=== PATIENT | male | born 1955 | race Caucasian/White ===

== ENCOUNTER 2022-03-20 14:48 | Inpatient (IN) | payer MEDICARE, SELFPAY ==
[2022-03-20] VITALS (42 sets, daily range): BP systolic 114–146; BP diastolic 64–92; PULSE 51–92; RESP 12–28; TEMP 36.4–36.7; O2SAT 89–100; BMI 24.4
--- NOTE | ~2022-03-20 | US_ITS ---
EXAMINATION: US renal BI DATE: 03/22/2022 14:47 INDICATION: Decreased urine output. TECHNIQUE: Multiple ultrasound grayscale images of the kidneys were obtained. COMPARISON: CT abdomen and pelvis 12/08/2012 FINDINGS: The right kidney measures 12.2 x 5.4 x 6.2 cm. The left kidney measures 12.9 x 5.7 x 5.7 cm. The kidn eys demonstrate normal parenchymal echogenicity. There is a 1.3 cm cyst in left kidney. There is no h ydronephrosis. The bladder is decompressed by a Villafaan catheter. IMPRESSION: 1. Normal kidney sizes. No hydronephrosis. Reviewed, dictated and finalized at location A.
--- NOTE | ~2022-03-20 | XR_ITS ---
EXAMINATION: XR chest 1V portable DATE: 03/23/2022 05:47 INDICATION: Cough. TECHNIQUE: A single frontal view of the chest was obtained. COMPARISON: Chest 2 views 05/31/19 FINDINGS: The patient is rotated to his left. There are airspace opacities in right mid and lower soni g zones. There are lucencies in the lungs, consistent with emphysema. There is a small right pleural effusion. No pneumothorax. The heart size is normal. There is a large hiatal hernia. IMPRESSION: 1. Worsened airspace opacities in right mid and lower lung zones, consistent with atelectasis versus pneumonia. 2. Small right pleural effusion. 3. Emphysema. 4. Large hiatal hernia. Reviewed, dictated and finalized at location A. IMPRESSION: 1. Worsened airspace opacities in right mid and lower lung zones, consistent wi th atelectasis versus pneumonia. 2. Small right pleural effusion. 3. Emphysema. 4. Large hiatal hernia.
--- NOTE | ~2022-03-20 | CT_ITS ---
EXAMINATION: CT brain wo con DATE: 03/20/2022 15:36 INDICATION: fall, AMS . TECHNIQUE: Computed tomography (CT) of the head was performed without intravenous contrast. The mA wa s adjusted according to patient size. Iterative reconstruction technique was employed. The dose-lengt h product was 681.00 mGy-cm. COMPARISON: None FINDINGS: No acute intracranial hemorrhage or extra-axial fluid collection. No hydrocephalus, mass, or herniation. No acute ischemic infarct. Unremarkable dural venous sinus attenuation. No acute osseous abnormality. Left maxillary retention cyst or polyp, otherwise the aerated spaces are clear. Mild atrophy and chronic white matter change. Atherosclerotic intracranial calcification. IMPRESSION: No acute intracranial process. Reviewed, dictated and finalized at location K.
--- NOTE | 2022-03-20 14:51 | ECG_ITS ---
Measurements Intervals O'Brien Rate: 81 P: 19 GA: 241 QRS: 34 QRSD: 85 T: 64 QT: 352 QTc: 409 Interpretive Statements SINUS RHYTHM WITH FIRST DEGREE AV BLOCK RIGHT ATRIAL ENLARGEMENT [0.3mV P-WAVE] LEFT ATRIAL ENLARGEMENT [-0.15mV P-WAVE IN V1/V2] COMPARED TO ECG 08/15/2019 05:27:52 FIRST DEGREE AV BLOCK NOW PRESENT Electronically Signed On 03-20-2022 19:48:38 CDT by Ketty Brooks M.D.
--- NOTE | 2022-03-20 14:59 | ED.GENADULT ---
HPI - General Adult General Chief complaint: Overdose Stated complaint: OD Time Seen by Provider: 03/20/22 14:49 History of Present Illness HPI narrative: 66-year-old male presented to the emergency department for evaluation of an intentional overdose. Patient does have a psychiatric history and does have prior suicide attempts. Patient states his last suicide attempt was approximately 10 years ago. Patient states his last psychiatric inpatient treatment was also 10 years ago. Patient states that he is unsure of the last time he had psychiatric follow-up. Patient states he does not have a counselor. Patient states last night at approximately 1 AM he took an unknown amount of Ativan. Patient does have a prescription of 2 mg tablets for Ativan. Patient's found the patient on the floor this afternoon and called EMS. Related Data Home Medications Medication Instructions Recorded Confirmed fenofibrate 160 mg tablet 160 mg PO DAILY 08/07/19 03/20/22 lorazepam 2 mg tablet 2 mg PO QID 08/07/19 03/20/22 lovastatin 40 mg tablet 40 mg PO DAILY 08/07/19 03/20/22 apixaban 5 mg tablet (Eliquis) 5 mg PO BID 03/20/22 03/20/22 clonazepam 1 mg tablet 1 mg PO BID 03/20/22 03/20/22 olanzapine 10 mg tablet 10 mg PO DAILY 03/20/22 03/20/22 Allergies Allergy/AdvReac Type Severity Reaction Status Date / Time erythromycin base Allergy Intermediate HIVES Verified 08/15/19 04:29 trazodone Allergy Intermediate HIVES Verified 08/15/19 04:29 PAROXETINE HCL Allergy Intermediate HIVES Uncoded 08/07/19 14:20 SERTRALINE HCL Allergy Intermediate HIVES Uncoded 08/07/19 14:20 Review of Systems Review of Systems: PSYCHIATRIC: History of depression and SI ROS unobtainable: Yes unobtainable due to mental status PMFSH Past Medical History Medical History (Updated 03/20/22 @ 20:03 by Odilia Carr NP) Anxiety Colon polyps Depression GERD (gastroesophageal reflux disease) History of revision of total replacement of right hip joint Hx of deep venous thrombosis Hyperlipidemia AMADA (obstructive sleep apnea) Surgical History Surgical History (Updated 03/20/22 @ 19:56 by Odilia Carr NP) H/O rectal polypectomy Status post total hip replacement, right Family History Family History Father Family history of malignant neoplasm of esophagus Patient's father is Mother Patient's mother is in good health Sibling Patient's brother is in good health Daughter Sleep apnea Other Cerebrovascular accident Family history of cardiovascular disease Family history of mental disorder Social History Social History (Updated 03/20/22 @ 19:59 by Odilia Carr NP) Social History: Patient is and lives with his . He smokes a pack a cigarettes a day. He is retired from a [employer]. He also previously heavily drink alcohol. He does designate his as his POA. Code status full code Smoking packs per day: 3 Smoking cigarettes per day: 60.0 Smoking status: Former smoker Second hand tobacco smoke exposure: No Smoking end date: 08/01/12 Alcohol intake: former Drinks per week: 6 Alcohol use details: Previously drank 2-3 beers per day but quit 13-14 years ago. Substance use: never Gender identity (if verbalized by the patient): Male Spiritual care concerns: No Agree to blood products: No Exam Narrative: APPEARANCE: Alert but somnolent HEAD: normocephalic, atraumatic. EYES: PERRLA/EOMI, conjunctivae clear. NOSE: Normal no drainage EARS:TMS clear with good light reflex. NECK: Supple. No adenopathy, no masses. RESPIRATORY: Airway patent, respirations nonlabored. Clear to auscultation bilaterally, no rales, rhonchi, wheezing. CARDIOVASCULAR: Regular rate and rhythm without murmurs rubs or gallops. ABDOMINAL: Soft, nontender, nondistended, normal bowel sounds MUSCULOSKELETAL: Moves all extremities. Strength/ROM intact, No edema, No c
[2022-03-20 15:15] LABS: Hematocrit 50.6 % (42.0-52.0); Hemoglobin 16.7 g/dL (14.0-18.0); Mean Corpuscular Hemoglobin 31.2 pg (26-34); Mean Corpuscular Volume 94.6 fl (80-100); Mean Platelet Volume 10.9 fl (7.4-10.4); Platelet Count Result 254 k/mm3 (150-375); Red Blood Count 5.35 M/mm3 (4.6-6.20); Red Cell Distribution Width 14.6 % (11.5-14.5); White Blood Count 14.3 K/mm3 (4.5-10.0)
[2022-03-20] MEDS: SODIUM CHLORIDE 0.9% IV 1,000 ML 999 ML IV CONT ×3 (15:25→16:19)
--- NOTE | 2022-03-20 15:25 | PC.NURSE ---
@ [phone] spoke with Zhanna from Poison Control [phone]. States to watch for symptoms. And support. Do not give Flumazenil. Peak hrs 2 hours & half life 12 hours
[2022-03-20 15:29] LABS: Alanine Aminotransferase 14 U/L (6-50); Alkaline Phosphatase 84 U/L (38-126); Anion Gap 12 mmol/L (8-16); Aspartate Amino Transferase 32 U/L (17-59); Bilirubin,Total 0.8 mg/dL (0.2-1.3); Blood Urea Nitrogen 11 mg/dL (9-20); Calcium 9.5 mg/dL (8.4-10.2); Carbon Dioxide 20 mmol/L (22-30); Chloride 109 mmol/L (98-107); Estimated CRCL calculation 74 ml/min; Estimated Glomerular Filt Rate > 60; Glucose 97 mg/dL (65-110); Potassium 4.1 mmol/L (3.4-5.0); Sodium 141 mmol/L (137-145)
[2022-03-20 15:30] LABS: Acetaminophen < 10 ug/mL (10-30); Ethanol < 10 mg/dL (<10); Salicylate < 1.0 mg/dL (2-20)
[2022-03-20 15:32] LABS: Creatine Kinase 864 U/L (55-170)
[2022-03-20 15:55] LABS: Lymphocytes Absolute Manual 0.57 K/mm3 (1.1-4.5); Monocytes Percent Manual 7 % (3-9); Neutrophils Percent Manual 89 % (46-73); Platelet Estimate Adequate (Adequate); Total Cells Counted 100
[2022-03-20 16:00] LABS: Thyroid Stimulating Hormone 0.177 uIU/mL (0.465-4.680)
[2022-03-20 16:02] LABS: SARS-CoV-2 RNA PCR Negative
--- NOTE | 2022-03-20 16:05 | PM.IMHP ---
H&P: HPI History of Present Illness Date/Time: 03/20/22 16:05 Chief Complaint: Overdose Narrative: This is a 66-year-old male patient who resides with his . The patient does have a psychiatric history and has had prior suicide attempts. The patient admits to feeling depressed. He stated that something happened make him feel this way but would not go into details. His last suicide attempt was approximately 10 years ago. The patient had inpatient psychiatric treatment at that time. He does not have a counselor. The patient is prescribed 2 mg of Ativan. The patient's found him on the floor this afternoon and called EMS. The patient did not know how many Ativan he took today. The patient is somewhat somnolent but is able to answer my questions. His white count is noted to be 14.3. His total creatinine kinase is 864. The patient had been found lying on the floor. The patient is negative for COVID. His Ua was negative for UTI. The patient is being admitted to observation status on the date of service of 03/20/2022. Review of Systems Review of Systems: See HPI All systems reviewed & are unremarkable except as noted in HPI and below Constitutional: Constitutional: Reports as per HPI and Reports no additional constitutional complaints Eyes: Eyes: Reports as per HPI and Reports no additional eye complaints ENT: Reports system reviewed and no additional complaints, except as documented and Reports Normal hearing present Cardiovascular: Cardiovascular: Reports no additional cardiovascular complaints Respiratory: Respiratory: Reports no additional respiratory complaints and Reports no additional respiratory complaints Gastrointestinal: Gastrointestinal: Reports as per HPI and Reports no additional gastrointestinal complaints Musculoskeletal: Musculoskeletal: Reports no additional musculoskeletal complaints Integumentary/Breasts: Skin/Breast: Reports system reviewed and no additional complaints, except as docu and Reports as per HPI Neurologic: Reports system reviewed and no additional complaints, except as documented, Reports as per HPI and Reports Normal hearing present Psychiatric: Psychiatric: Reports no additional psychiatric complaints and Reports as per HPI Endocrine: Endocrine: Reports no additional endocrine complaints Hematologic/Lymphatic: Hematologic/Lymphatic: Reports no additional hematologic/lymphatic complaints Allergic/Immunologic: Allergic/Immunologic: Reports no additional allergic/immunologic complaints [facility] Past Medical History Medical History (Updated 03/20/22 @ 20:03 by Odilia Carr NP) Anxiety Colon polyps Depression GERD (gastroesophageal reflux disease) History of revision of total replacement of right hip joint Hx of deep venous thrombosis Hyperlipidemia AMADA (obstructive sleep apnea) Surgical History Surgical History (Updated 03/20/22 @ 19:56 by Odilia Carr NP) H/O rectal polypectomy Status post total hip replacement, right Family History Family History Father Family history of malignant neoplasm of esophagus Patient's father is Mother Patient's mother is in good health Sibling Patient's brother is in good health Daughter Sleep apnea Other Cerebrovascular accident Family history of cardiovascular disease Family history of mental disorder Social History Social History (Updated 03/20/22 @ 19:59 by Odilia Carr NP) Social History: Patient is and lives with his . He smokes a pack a cigarettes a day. He is retired from a [employer] company. He also previously heavily drink alcohol. He does designate his as his POA. Code status full code Smoking packs per day: 3 Smoking cigarettes per day: 60.0 Smoking status: Former smoker Second hand tobacco smoke exposure: No Smoking end date: 08/01/12 Alcohol intake: former Alcohol use details: Previously drank
[2022-03-20 16:12] LABS: Appearance Urine Clear (Clear); Bilirubin Urine Negative (Negative); Blood Urine Negative (Negative); Color Urine Yellow (Yellow); Glucose Urine UA Negative (Negative); Ketones Urine Negative (Negative); Leukocyte Esterase Ur Negative LEU/UL (Negative); Nitrate Urine Negative (Negative); Protein Urine Negative (Negative)
[2022-03-20 16:13] LABS: Add Urine Microscopic? NO
--- NOTE | 2022-03-20 17:10 | PC.NURSE ---
Spoke to poison control. Updated them on patients condition.
--- NOTE | 2022-03-20 19:37 | PC.NURSE ---
This patient, Maximiliano Platt, was admitted to Intensive Care Unit-5 at 1925. Patient/family oriented to hospital policies and general routines including ID bracelet, bed and alarms, visiting hours, pain management, procedures, bathroom and other care routines, personal items, smoking policy, room service/diet, and visiting hours. Information on how to activate the Rapid Response Team has been discussed. Patient/Family are encouraged to report perceived risks to care and to ask questions if they do not understand what they are told or what they should do.
[2022-03-20] MEDS: SODIUM CHLORIDE 0.9% IV 1,000 ML 125 ML IV CONT (20:57)
[2022-03-20] MEDS: FAMOTIDINE 20 MG/2 ML VIAL IV PUSH (21:01)
--- NOTE | 2022-03-20 22:46 | PC.NURSE ---
03/20/22 at 2........spoke with poison control and updated them on patient's condition.
[2022-03-20] MEDS: APIXABAN 5 MG TABLET PO (23:44)
[2022-03-21] VITALS (15 sets, daily range): BP systolic 112–138; BP diastolic 62–95; PULSE 42–80; RESP 14–25; TEMP 36.4–36.8; O2SAT 94–97
[2022-03-21 04:20] LABS: Basophils Absolute Auto 0.1 K/mm3 (0.0-0.1); Basophils Percent Auto 0.9 % (0.2-1.2); Eosinophils Absolute Auto 0.2 K/mm3 (0-0.3); Eosinophils Percent Auto 3.2 % (0-4.4); Hematocrit 43.1 % (42.0-52.0); Hemoglobin 13.8 g/dL (14.0-18.0); Immature Granulocyte Absolute 0.02 K/mm3 (0.00-0.031); Immature Granulocyte Percent A 0.3 % (0-0.5); Lymphocytes Absolute Auto 0.65 K/mm3 (0.9-3.2); Lymphocytes Percent Auto 10.3 % (18.3-44.2); Mean Corpuscular Hemoglobin 31.2 pg (26-34); Mean Corpuscular Volume 97.5 fl (80-100); Mean Platelet Volume 10.5 fl (7.4-10.4); Monocytes Absolute Auto 0.5 K/mm3 (0.1-0.6); Monocytes Percent Auto 8.5 % (2.6-8.5); Neutrophils Absolute Auto 4.9 K/mm3 (1.3-6.7); Neutrophils Percent Auto 76.8 % (45.5-73.1); Platelet Count Result 181 k/mm3 (150-375); Red Blood Count 4.42 M/mm3 (4.6-6.20); Red Cell Distribution Width 14.7 % (11.5-14.5); White Blood Count 6.3 K/mm3 (4.5-10.0)
[2022-03-21 04:42] LABS: Lactic Acid Reflex 0.8 mmol/L (0.7-2.0)
[2022-03-21] MEDS: SODIUM CHLORIDE 0.9% IV 1,000 ML 125 ML IV CONT ×3 (04:46→22:05)
[2022-03-21 05:00] LABS: Alanine Aminotransferase 11 U/L (6-50); Albumin Level 2.7 g/dL (3.5-5.1); Alkaline Phosphatase 64 U/L (38-126); Anion Gap 6 mmol/L (8-16); Aspartate Amino Transferase 37 U/L (17-59); Bilirubin,Total 0.8 mg/dL (0.2-1.3); Blood Urea Nitrogen 10 mg/dL (9-20); CRP 4.2 mg/dL (<1.0); Calcium 8.5 mg/dL (8.4-10.2); Carbon Dioxide 21 mmol/L (22-30); Chloride 112 mmol/L (98-107); Creatine Kinase 1390 U/L (55-170); Estimated CRCL calculation 80 ml/min; Estimated Glomerular Filt Rate > 60; Glucose 84 mg/dL (65-110); Phosphorus 2.8 mg/dL (2.5-4.5); Potassium 3.5 mmol/L (3.4-5.0); Sodium 139 mmol/L (137-145)
[2022-03-21 05:31] LABS: Thyroid Stimulating Hormone Reflex 0.141 uIU/mL (0.465-4.68)
[2022-03-21 06:00] LABS: Free T4 Free Thyroxine Reflex 1.46 ng/dL (0.78-2.19)
[2022-03-21 08:07] LABS: Total Triiodothyronine (T3) 0.78 NG/ML (0.97-1.69)
--- NOTE | 2022-03-21 08:58 | WPDCNINT ---
Assessment and Plan Assessment and plan (1) Benzodiazepine overdose: Code(s): T42.4X1A - Poisoning by benzodiazepines, accidental (unintentional), initial encounter Status: Acute Assessment and Plan: Patient presented with mental status, found down by his , patient stated he ingested unknown amount of Ativan 2 mg pills. -patient adequately fluid resuscitated -continue maintenance IV fluids -monitor urine output -patient is hemodynamically stable, (2) Suicidal behavior: Code(s): R45.89 - Other symptoms and signs involving emotional state Status: Acute Assessment and Plan: Patient with suicidal behavior, -bedside sitter in place -continue suicide precautions -will have care coordination and crisis evaluated the patient as he seems to be medically stable at this time (3) Depression: Qualifiers: Depression Type: major depressive disorder Major depression recurrence: unspecified whether recurrent Active/Remission status: currently active Major depression episode severity: severe Psychotic features: with psychotic features Qualified Code(s): F32.3 - Major depressive disorder, single episode, severe with psychotic features Code(s): F32.9 - Major depressive disorder, single episode, unspecified Status: Acute Assessment and Plan: Held olanzapine as he was bradycardic (4) Anxiety: Code(s): F41.9 - Anxiety disorder, unspecified Status: Acute (5) AMADA (obstructive sleep apnea): Code(s): G47.33 - Obstructive sleep apnea (adult) (pediatric) Status: Acute Assessment and Plan: CPAP at night on home settings (6) Hx of deep venous thrombosis: Code(s): Z86.718 - Personal history of other venous thrombosis and embolism Status: Acute Assessment and Plan: Continue apixaban (7) Rhabdomyolysis: Code(s): M62.82 - Rhabdomyolysis Status: Acute Assessment and Plan: Elevated CK level, patient has received adequate fluids, continue maintenance IV fluids -will give additional IV fluid Plan DVT prophylaxis: Apixaban Nutrition: Regular diet, finger foods Code Status: Full code Critical Care Time Spent: 45 minutes Due to a high probability of clinically significant, life threatening deterioration, the patient required my highest level of preparedness to intervene emergently and I personally spent this critical care time directly and personally managing the patient. This critical care time included obtaining a history; examining the patient; pulse oximetry; ordering and review of studies; arranging urgent treatment with development of a management plan; evaluation of patient's response to treatment; frequent reassessment; and discussions with other providers. It was exclusive of separately billable procedures and treating other patients and teaching time. Please see Assessment and Plan section and the rest of the note for further information on patient assessment and treatment [employer]er Consult Note Consult date: 03/21/22 Reason for consult: Benzodiazepine overdose, altered mental status HPI: Maximiliano Platt is a 66 year old male with past medical history of anxiety, depression, GERD a history of DVT, hyperlipidemia, obstructive sleep apnea presented the ED on 03/20/2022 after ingesting unknown amount of Ativan 2 mg pills. He says he has some stressors in life that he does not tolerate discuss, but he wanted to end his life so took the pills. He has a history of suicide attempt upon 10 years ago, he did have inpatient psychiatric treatment at that time. Patient was given adequate amount of IV fluids in the ER and remains on maintenance IV fluids. WBC count was 14.3 on admission which has normalized this morning, electrolytes and renal function are within normal limits. CK levels are elevated Patient seen and examined this morning, remains in bed, bedside sitter in place, hemodynamically stable, was bradyca
[2022-03-21] MEDS: APIXABAN 5 MG TABLET PO ×2 (09:03→17:18)
[2022-03-21] MEDS: FENOFIBRATE 160 MG TABLET PO (09:04)
[2022-03-21] MEDS: FAMOTIDINE 20 MG/2 ML VIAL IV PUSH ×2 (09:04→20:04)
--- NOTE | 2022-03-21 09:34 | PM.IMPN ---
Progress Note: A&P Assessment and Plan (1) Benzodiazepine overdose: Code(s): T42.4X1A - Poisoning by benzodiazepines, accidental (unintentional), initial encounter Status: Acute Assessment and Plan: Patient found down by his with altered mental status. Discovered that he overdosed on lorazepam 2mg tablets of unknown quantity. Patient is hemodynamically stable. -patient was adequately fluid resuscitated -he remains on maintenance IV fluids -monitor urine output -continue supportive care (2) Suicidal behavior: Code(s): R45.89 - Other symptoms and signs involving emotional state Status: Acute Assessment and Plan: Patient with depression on olanzapine, clonazepam and lorazepam. He admits to overdosing on lorazepam in an attempted suicide. Unclear how long he has had suicidal ideation or what (if any) was the trigger. -bedside sitter in place -continue suicide precautions -care coordination and crisis evaluation (3) Rhabdomyolysis: Code(s): M62.82 - Rhabdomyolysis Status: Acute Assessment and Plan: Elevated CK level present on admission. [place] related to patient being down on the ground. He is also on lovastatin. TCK was 864 but has climbed to 1390. -patient received adequate fluids for resuscitation -remains on maintenance IV fluids with additional fluids being given with Hetastarch. -continue to hold statin -follow levels (4) Depression: Qualifiers: Active/Remission status: currently active Depression Type: major depressive disorder Major depression episode severity: severe Major depression recurrence: unspecified whether recurrent Psychotic features: with psychotic features Qualified Code(s): F32.3 - Major depressive disorder, single episode, severe with psychotic features Code(s): F32.9 - Major depressive disorder, single episode, unspecified Status: Acute Assessment and Plan: Patient with known depression. -Held olanzapine as he was bradycardic (james could be related to AMADA) -As above -Continue supportive care (5) Anxiety: Code(s): F41.9 - Anxiety disorder, unspecified Status: Acute Assessment and Plan: Stable. As above. (6) AMADA (obstructive sleep apnea): Code(s): G47.33 - Obstructive sleep apnea (adult) (pediatric) Status: Acute Assessment and Plan: Stable. Continue CPAP at night on home settings (7) Hx of deep venous thrombosis: Code(s): Z86.718 - Personal history of other venous thrombosis and embolism Status: Acute Assessment and Plan: Known hx of DVT on intermodal customer service anticoagulation. Continue apixaban Plan DVT prophylaxis: Apixaban Nutrition: Regular diet, finger foods Code Status: Full code Subjective Date/time seen: 03/21/22 09:34 Interval history: 66yo male with depression and a hx of suicide attempts her for Ativan OD in a suicide attempt. Patient states he is here due to 'suicide'. He admits to attempted suicide but rivas not provide further details on why he tried to hurt himself. He feels very weak. Denies n/v. Eating okay. No CP. No back pain. He does feel less groggy today. Exam Narrative: AF 98.2 132/62 82 25 94% ra Gen - NARD Chest - CTA bilaterally anteriorly and in the flanks. Nml RR CV - RRR S1-S2. Tele showing occasional bradycardia. Abd - Soft, nontender, nondistended, +bowel sounds Ext - No edema Neuro -?Patient is groggy but awake and oriented x4. no focal weakness. Skin -? Some skin discoloration on lower extremities (dirt?). Right knee dry abrasion without erhythema. Faint erythema to the right elbow with dried eschars but no pain and very little warmth. Speech is clear but slow Psych -?Groggy. Depressed affect. slow speech and mentation Objective Data Vital Signs Vital Signs: Vital Signs - 24 hr 03/20/22 14:50 03/20/22 15:27 03/20/22 15:15 Temperature 97.6 F Pulse Rate 92 87 Res
[2022-03-21 10:58] LABS: Amphetamine Screen Urine Negative (Negative); Barbiturate Screen Urine Negative (Negative); Benzodiazepines Screen Urine Positive (Negative); Cannabinoid Screen Urine Negative (Negative); Cocaine Screen Urine Negative (Negative); Methadone Screen Urine Negative (Negative); Opiate Screen Urine Negative (Negative); Phencyclidine Screen Urine Negative (Negative)
[2022-03-21] MEDS: hetaSTARCH 6%/NACL 500 ML 250 ML IV CONT (11:00)
[2022-03-22] VITALS (10 sets, daily range): BP systolic 122–136; BP diastolic 77–86; PULSE 42–56; RESP 15–21; TEMP 36.9–37.2; O2SAT 92–93
[2022-03-22 04:19] LABS: Basophils Absolute Auto 0.1 K/mm3 (0.0-0.1); Basophils Percent Auto 0.8 % (0.2-1.2); Eosinophils Absolute Auto 0.2 K/mm3 (0-0.3); Eosinophils Percent Auto 2.7 % (0-4.4); Hematocrit 41.8 % (42.0-52.0); Hemoglobin 13.1 g/dL (14.0-18.0); Immature Granulocyte Absolute 0.03 K/mm3 (0.00-0.031); Immature Granulocyte Percent A 0.4 % (0-0.5); Lymphocytes Absolute Auto 0.91 K/mm3 (0.9-3.2); Lymphocytes Percent Auto 12.2 % (18.3-44.2); Mean Corpuscular HGB Conc 31.3 g/dl (32-36); Mean Corpuscular Hemoglobin 31.2 pg (26-34); Mean Corpuscular Volume 99.5 fl (80-100); Mean Platelet Volume 11.1 fl (7.4-10.4); Monocytes Absolute Auto 0.7 K/mm3 (0.1-0.6); Monocytes Percent Auto 9.2 % (2.6-8.5); Neutrophils Absolute Auto 5.6 K/mm3 (1.3-6.7); Neutrophils Percent Auto 74.7 % (45.5-73.1); Platelet Count Result 167 k/mm3 (150-375); Red Cell Distribution Width 14.8 % (11.5-14.5); White Blood Count 7.5 K/mm3 (4.5-10.0)
[2022-03-22 04:39] LABS: Alanine Aminotransferase 11 U/L (6-50); Albumin Level 2.3 g/dL (3.5-5.1); Alkaline Phosphatase 57 U/L (38-126); Anion Gap 4 mmol/L (8-16); Aspartate Amino Transferase 31 U/L (17-59); Bilirubin,Total 0.4 mg/dL (0.2-1.3); Blood Urea Nitrogen 11 mg/dL (9-20); CRP 4.8 mg/dL (<1.0); Calcium 8.2 mg/dL (8.4-10.2); Carbon Dioxide 23 mmol/L (22-30); Chloride 113 mmol/L (98-107); Creatine Kinase 688 U/L (55-170); Estimated CRCL calculation 66 ml/min; Estimated Glomerular Filt Rate > 60; Glucose 99 mg/dL (65-110); Potassium 3.5 mmol/L (3.4-5.0); Sodium 140 mmol/L (137-145)
[2022-03-22] MEDS: SODIUM CHLORIDE 0.9% IV 1,000 ML 125 ML IV CONT ×2 (06:48→14:11)
[2022-03-22] MEDS: FAMOTIDINE 20 MG/2 ML VIAL IV PUSH ×2 (08:00→22:53)
[2022-03-22] MEDS: FENOFIBRATE 160 MG TABLET PO (08:00)
[2022-03-22] MEDS: APIXABAN 5 MG TABLET PO ×2 (08:00→16:58)
--- NOTE | 2022-03-22 12:00 | PM.IMPN ---
Progress Note: A&P Assessment and Plan (1) Benzodiazepine overdose: Code(s): T42.4X1A - Poisoning by benzodiazepines, accidental (unintentional), initial encounter Status: Acute Assessment and Plan: Patient found down by his with altered mental status. Discovered that he overdosed on lorazepam 2mg tablets of unknown quantity. Patient was adequately fluid resuscitated. Patient remains hemodynamically stable. Bradycardia noted but may be related to inactivity and/or AMADA. Increase activity. PT/OT. Continue to hold benzos. (2) Suicidal behavior: Code(s): R45.89 - Other symptoms and signs involving emotional state Status: Acute Assessment and Plan: Patient with depression on olanzapine, clonazepam and lorazepam. He admits to overdosing on lorazepam in an attempted suicide. Unclear how long he has had suicidal ideation or what (if any) was the trigger. - bedside sitter in place - continue suicide precautions - care coordination and crisis evaluation - Patient cleared for discharge (3) Rhabdomyolysis: Code(s): M62.82 - Rhabdomyolysis Status: Acute Assessment and Plan: Elevated CK level present on admission. [place] related to patient being down on the ground. He is also on lovastatin. TCK climbed to 1390. UA actually clear on admission. Patient received adequate fluids for resuscitation. TCK level trending down. Red/brown urine related to rhabdo. Hgb stable so hemolysis less likely. UOP poor. - remains on maintenance IV fluids - continue to hold statin - Continue to monitor urine output - check renal US - Continue supportive care (4) Depression: Qualifiers: Active/Remission status: currently active Depression Type: major depressive disorder Major depression episode severity: severe Major depression recurrence: unspecified whether recurrent Psychotic features: with psychotic features Qualified Code(s): F32.3 - Major depressive disorder, single episode, severe with psychotic features Code(s): F32.9 - Major depressive disorder, single episode, unspecified Status: Acute Assessment and Plan: Patient with known depression. - Held olanzapine as he was bradycardic (james could be related to AMADA) - As above - Continue supportive care (5) Anxiety: Code(s): F41.9 - Anxiety disorder, unspecified Status: Acute Assessment and Plan: Stable. As above. (6) AMADA (obstructive sleep apnea): Code(s): G47.33 - Obstructive sleep apnea (adult) (pediatric) Status: Acute Assessment and Plan: Stable. Tolerating CPAP. Continue CPAP at night on home settings (7) Hx of deep venous thrombosis: Code(s): Z86.718 - Personal history of other venous thrombosis and embolism Status: Acute Assessment and Plan: Known hx of DVT on vermin exterminator anticoagulation. Continue apixaban (8) Urine retention: Code(s): R33.9 - Retention of urine, unspecified Status: Acute Assessment and Plan: Villafana secured. UOP noted. Continue Villafana. Increase activity. No Flomax for now. Plan DVT prophylaxis: Apixaban Nutrition: Regular diet, finger foods Code Status: Full code Subjective Date/time seen: 03/22/22 12:00 Interval history: 66yo male with depression and a hx of suicide attempts her for Ativan OD in a suicide attempt. Patient up most of the night last night. He feels very weak and has trouble rolling himself in bed. He denies any other symptoms. No CP or SOB. No n/v. Eating well. He wore his CPAP last night. Exam Narrative: AF 99.0 122/86 44 15 92% ra Gen - NARD lying almost flat in bed Chest - CTA bilaterally. Nml RR CV - RRR S1-S2. Tele showing bradycardia with HR into the 40's. Abd - Soft, nontender, nondistended, +bowel sounds - Villafana secured with red-brown urine in the bag Ext - No pedal edema Neuro -?Patient is more alert but with slow response. Weak but
[2022-03-23] VITALS: BP 149/77; PULSE 43; PULSE 55; RESP 24; TEMP 36.7; O2SAT 94
[2022-03-23 04:00] VITALS: PULSE 43
[2022-03-23 05:11] LABS: Basophils Absolute Auto 0.1 K/mm3 (0.0-0.1); Basophils Percent Auto 0.7 % (0.2-1.2); Eosinophils Absolute Auto 0.2 K/mm3 (0-0.3); Eosinophils Percent Auto 3.1 % (0-4.4); Hematocrit 42.5 % (42.0-52.0); Hemoglobin 13.5 g/dL (14.0-18.0); Immature Granulocyte Absolute 0.03 K/mm3 (0.00-0.031); Immature Granulocyte Percent A 0.4 % (0-0.5); Lymphocytes Absolute Auto 0.68 K/mm3 (0.9-3.2); Lymphocytes Percent Auto 9.6 % (18.3-44.2); Mean Corpuscular HGB Conc 31.8 g/dl (32-36); Mean Corpuscular Hemoglobin 31.3 pg (26-34); Mean Corpuscular Volume 98.4 fl (80-100); Mean Platelet Volume 11.1 fl (7.4-10.4); Monocytes Absolute Auto 0.7 K/mm3 (0.1-0.6); Monocytes Percent Auto 9.8 % (2.6-8.5); Neutrophils Absolute Auto 5.4 K/mm3 (1.3-6.7); Neutrophils Percent Auto 76.4 % (45.5-73.1); Platelet Count Result 160 k/mm3 (150-375); Red Blood Count 4.32 M/mm3 (4.6-6.20); Red Cell Distribution Width 14.5 % (11.5-14.5); White Blood Count 7.1 K/mm3 (4.5-10.0)
[2022-03-23 05:27] LABS: Alanine Aminotransferase 15 U/L (6-50); Albumin Level 2.5 g/dL (3.5-5.1); Alkaline Phosphatase 58 U/L (38-126); Anion Gap 5 mmol/L (8-16); Aspartate Amino Transferase 33 U/L (17-59); Bilirubin,Total 0.8 mg/dL (0.2-1.3); Blood Urea Nitrogen 10 mg/dL (9-20); Calcium 8.4 mg/dL (8.4-10.2); Carbon Dioxide 23 mmol/L (22-30); Chloride 110 mmol/L (98-107); Creatine Kinase 630 U/L (55-170); Estimated CRCL calculation 73 ml/min; Estimated Glomerular Filt Rate > 60; Glucose 95 mg/dL (65-110); Magnesium 1.9 mg/dL (1.6-2.3); Potassium 3.4 mmol/L (3.4-5.0); Sodium 138 mmol/L (137-145)
[2022-03-23 08:00] VITALS: BP 160/91; PULSE 52; RESP 17; TEMP 36.5; O2SAT 95
[2022-03-23] MEDS: APIXABAN 5 MG TABLET PO (08:53)
[2022-03-23] MEDS: POTASSIUM CHLORIDE 20 MEQ TABLET PO (08:53)
[2022-03-23] MEDS: FAMOTIDINE 20 MG/2 ML VIAL IV PUSH (08:53)
[2022-03-23] MEDS: SODIUM CHLORIDE 0.9% IV 1,000 ML 100 ML IV CONT (09:23)
--- NOTE | 2022-03-23 13:00 | PM.DS ---
DS: Admitting Diagnosis Discharge Date 03/23/22 Admitting Diagnosis Overdose DS: Discharge Diagnosis Discharge Diagnosis (1) Benzodiazepine overdose: Code(s): T42.4X1A - Poisoning by benzodiazepines, accidental (unintentional), initial encounter Status: Acute (2) Suicidal behavior: Code(s): R45.89 - Other symptoms and signs involving emotional state Status: Acute (3) Rhabdomyolysis: Code(s): M62.82 - Rhabdomyolysis Status: Acute (4) Depression: Qualifiers: Depression Type: major depressive disorder Major depression recurrence: unspecified whether recurrent Active/Remission status: currently active Major depression episode severity: severe Psychotic features: with psychotic features Qualified Code(s): F32.3 - Major depressive disorder, single episode, severe with psychotic features Code(s): F32.9 - Major depressive disorder, single episode, unspecified Status: Acute (5) Anxiety: Code(s): F41.9 - Anxiety disorder, unspecified Status: Acute (6) AMADA (obstructive sleep apnea): Code(s): G47.33 - Obstructive sleep apnea (adult) (pediatric) Status: Acute (7) Hx of deep venous thrombosis: Code(s): Z86.718 - Personal history of other venous thrombosis and embolism Status: Acute (8) Urine retention: Code(s): R33.9 - Retention of urine, unspecified Status: Acute DS: Summary Hospital Course Reason for hospitalization: 66yo male with depression and a hx of suicide attempts her for Ativan OD in a suicide attempt. Please see H&P for details Hospital Course: Patient found down by his with altered mental status. Discovered that he overdosed on lorazepam 2mg tablets of unknown quantity.? Patient was adequately fluid resuscitated. Patient remained hemodynamically stable. Bradycardia noted but may be related to inactivity and/or untreated AMADA. He worked with PT/OT. Patient with depression on olanzapine, clonazepam and lorazepam. He admits to overdosing on lorazepam in an attempted suicide. He has had suicidal ideation for a months. No clear trigger resulting in his actions. Patient was evaluated by Crisis with plans for inpatient psychiatric care. Elevated CK level present on admission. Buena related to patient being down on the ground. He is also on lovastatin and fenofibrate (both held). TCK climbed to 1390 UA was clear on admission. Patient received adequate fluid resuscitation and continued on maintenance. TCK level trended down. We continued CPAP at night on home settings. He has a known hx of DVT on prison anticoagulation. We continued apixaban. Had urine retention related to inactivity. Villafana able to be removed before discharge and he was voiding normally without clinical findings or symptoms of recurent urine retention. He overall did well and was transferred to a psychiatric facility. Status at Discharge Cognitive/behavioral status at discharge: Stable Time Spent with Patient Time attestation: Total time spent providing and/or coordinating discharge services: 35 minutes Time spent: Greater than 30 minutes Exam Narrative: AF 97.7 160/91 52 17 95% ra Gen - NARD Chest - CTA bilaterally. Nml RR CV - RRR S1-S2. Tele showing occasional bradycardia (HR currently 71) Abd - Soft, nontender, nondistended, +bowel sounds Ext - No pedal edema Skin -? warm and dry Psych -?awake and alert. Blunted affect. Slow speech and mentation DS: Data Data Completed and Pending Labs on day of discharge: Labs from last 24 hours 03/23/22 03/23/22 04:50 04:50 WBC 7.1 RBC 4.32 L Hgb 13.5 L Hct 42.5 MCV 98.4 MCH 31.3 MCHC 31.8 L RDW 14.5 Plt Count 160 MPV 11.1 H Immature Gran % (Auto) 0.4 Neut % (Auto) 76.4 H Lymph % (Auto) 9.6 L [place] % (Auto) 9.8 H Eos % (Auto) 3.1 Baso % (Auto) 0.7 Lymph # (Auto) 0.68 L [place] # (Auto) 0.7 H Eos # (Auto) 0.2 Baso # (Auto)
--- NOTE | 2022-03-23 13:17 | PCOTNOTE ---
Attempted to see pt. for occupational therapy evaluation. Per nursing pt. is awaiting ambulance to transfer to another hospital. Will follow.
== END 2022-03-23 13:49 | DRG 918 ==
LOC: ANHED 16:33 → ANHICU 19:30
PROVIDERS: Internal Medicine; Nurse Practitioner; Admitting Provider Family Medicine; Emergency Provider Emergency Medicine; Visit Provider Internal Medicine
DX: T42.4X2A Poisoning by benzodiazepines, intentional self-harm, initial encounter (principal); R45.851 Suicidal ideations; M62.82 Rhabdomyolysis; F32.9 Major depressive disorder, single episode, unspecified; F41.9 Anxiety disorder, unspecified; G47.33 Obstructive sleep apnea (adult) (pediatric); R33.9 Retention of urine, unspecified; K21.9 Gastro-esophageal reflux disease without esophagitis; E78.5 Hyperlipidemia, unspecified; Z20.822 Contact with and (suspected) exposure to COVID-19; Z96.641 Presence of right artificial hip joint; Z86.718 Personal history of other venous thrombosis and embolism; Z87.891 Personal history of nicotine dependence; Z79.01 Long term (current) use of anticoagulants
CPT/HCPCS: 36415; 70450; 71045; 76775; 80053; 80307; 81003; 82550; 82728; 83605; 83735; 84100; 84439; 84443; 84480; 85025; 86140; 87086; 87088; 93005; 94660; 96361; 96365; 96366; 96375; 96376; 99285; A9270; C9803; G0378; J7030; U0003; U0005

== ENCOUNTER 2022-04-25 20:38 | Observation (INO) | payer MEDICARE, MEDICAID, SELFPAY ==
[2022-04-25] VITALS (32 sets, daily range): BP systolic 114–152; BP diastolic 71–89; PULSE 67–96; RESP 12–24; TEMP 36.3–36.7; O2SAT 94–100
--- NOTE | ~2022-04-25 | CT_ITS ---
EXAMINATION: CT brain wo con DATE: 04/25/2022 21:25 INDICATION: Frequent falls. Patient on Eloquis.. TECHNIQUE: Computed tomography (CT) of the head was performed without intravenous contrast. The mA wa s adjusted according to patient size. Iterative reconstruction technique was employed. Exam dose: 68 1.00 mGy-cm total exam DLP. COMPARISON: 03/20/2022 CT brain FINDINGS: Again noted is a large polyp or mucous retention cyst in the lower aspect of the left maxil winston sinus. The paranasal sinuses and mastoid air cells are otherwise unremarkable. No fracture or bone destruction of the cranial vault. Intracranial calcified atherosclerosis is noted, particularly involving the carotid siphon internal c arotid arteries. There is nonspecific diminished attenuation of the cerebral white matter, likely due to chronic small vessel ischemic change. There is moderate cerebral and cerebellar volume loss. No intracranial mass lesion or hemorrhage or cerebrovascular accident is detected. No midline shift o r mass effect effect. No subdural or epidural hematoma. IMPRESSION: Cerebral atherosclerosis and chronic small vessel ischemic changes of the cerebral white matter No acute intracranial finding Reviewed, dictated and finalized at [facility]. Reviewed, dictated and finalized at [facility].
--- NOTE | ~2022-04-25 | XR_ITS ---
EXAMINATION: XR hip RT 1V DATE: 04/25/2022 22:57 INDICATION: Right hip dislocation status post reduction. TECHNIQUE: A single view of right hip was obtained. COMPARISON: Right hip radiographs 04/25/2022, 08/15/2019 FINDINGS: There is a total right hip arthroplasty in near-anatomic alignment. No periprosthetic lucen cy to suggest loosening or infection. There is chronic asymmetric liner wear. No fracture. IMPRESSION: 1. Total right hip arthroplasty in near-anatomic alignment with chronic asymmetric liner wear. Reviewed, dictated and finalized at location [facility]. IMPRESSION: 1. Total right hip arthroplasty in near-anatomic alignment with chronic asymmet khalida liner wear.
--- NOTE | ~2022-04-25 | XR_ITS ---
EXAMINATION: XR hip RT 2V w AP pelvis DATE: 04/25/2022 21:42 INDICATION: Right hip pain. TECHNIQUE: An anteroposterior view of the pelvis and 2 views of right hip were obtained. COMPARISON: Right femur radiographs 08/15/2019 FINDINGS: There is a total right hip arthroplasty. There is lateral and proximal dislocation of the f emoral component with respect to the acetabular component. No fracture. There is moderate left hip os teoarthrosis. There is lumbar levocurvature and moderate spondylosis. IMPRESSION: 1. Dislocated total right hip arthroplasty. 2. Moderate left hip osteoarthritis. Reviewed, dictated and finalized at location [facility].
--- NOTE | ~2022-04-25 | XR_ITS ---
EXAMINATION: XR wrist LT 2V DATE: 04/25/2022 21:42 INDICATION: Left wrist pain and swelling. TECHNIQUE: 3 views of left wrist were obtained. COMPARISON: None. FINDINGS: There is a comminuted fractures of distal left radius with involvement of the distal radiou lnar joint and distal articular surface. The main distal fracture fragment demonstrates impaction and 5 mm palmar displacement. There is an avulsion fracture of the ulnar styloid. There is mild osteoart hritis of triscaphe joint and first carpometacarpal joint. IMPRESSION: 1. Comminuted fracture of distal radius. 2. Avulsion fracture of the ulnar styloid. Reviewed, dictated and finalized at location [facility].
--- NOTE | ~2022-04-25 | XR_ITS ---
EXAMINATION: XR wrist LT 2V DATE: 04/25/2022 22:57 INDICATION: Distal left radius fracture status post reduction TECHNIQUE: 2 views of left wrist were obtained. COMPARISON: Left wrist radiographs 04/25/2022 FINDINGS: There is a comminuted fracture of distal left radius with involvement of the distal radioul camden joint and distal articular surface. The main distal fracture fragment demonstrates impaction. The re is 3 degrees palmar tilt of the distal articular surface. There is an avulsion fracture of the uln ar styloid. Cast material obscures fine bone detail. Joint spaces are normal. IMPRESSION: 1. Comminuted fracture of distal left radius with improvement in alignment. 2. Avulsion fracture of the ulnar styloid. Reviewed, dictated and finalized at location [facility].
--- NOTE | ~2022-04-25 | XR_ITS ---
EXAMINATION: XR chest 1V portable DATE: 04/25/2022 21:41 INDICATION: Weakness. Fall. TECHNIQUE: A single frontal view of the chest was obtained on 2 radiographs. COMPARISON: Chest single view 03/23/2022, chest CT 12/28/2016 FINDINGS: The lungs are hyperexpanded with lucencies, consistent with emphysema. There is mild atelec tasis in left lower lung zone. No pleural effusion or pneumothorax. The heart size is normal. There i s a large hiatal hernia. IMPRESSION: 1. Emphysema. 2. Mild atelectasis in left lower lung zone. 3. Large hiatal hernia. Reviewed, dictated and finalized at location A.
--- NOTE | 2022-04-25 21:03 | ECG_ITS ---
Measurements Intervals [place] Rate: 79 P: -84 HI: 136 QRS: 49 QRSD: 78 T: 79 QT: 369 QTc: 425 Interpretive Statements SINUS RHYTHM BORDERLINE ST-T WAVE ABNORMALITY- HIGH LATERAL LEADS BORDERLINE ECG BASELINE ARTIFACT- I, II, III, AVR, AVL, V3 COMPARED TO ECG 03/20/2022 15:48:19 NO SIGNIFICANT CHANGES Electronically Signed On 04-26-2022 6:39:39 CDT by Tyler House D.O.
--- NOTE | 2022-04-25 21:16 | PC.NURSE ---
Patient taken to CT via stretcher at this time. When patient returns, EKG, IV and labs will be obtained.
--- NOTE | 2022-04-25 21:45 | ED.GENADULT ---
HPI - General Adult General Chief complaint: Extremity Problem,Nontraumatic Stated complaint: Right leg pain since this AM Time Seen by Provider: 04/25/22 20:55 History of Present Illness HPI narrative: This is a 66-year-old male presenting ED for frequent falls. Patient lives at home with his . He frequently has to call EMS to pick him up off the ground. The patient is nonambulatory since he had a hip replacement that required revision and now causes him too much pain to walk. The patient slipped out of his chair today. He denies head trauma. He denies loss of consciousness. He does admit to drinking alcohol today. Patient is also complaining of left wrist pain and swelling. He does not remember falling on it. Patient has history of blood clot for which he takes Eliquis. Neither the patient or his believe that he is capable of living at home on his own anymore due to his weakness. Related Data Home Medications Medication Instructions Recorded Confirmed fenofibrate 160 mg tablet 160 mg PO DAILY 08/07/19 03/20/22 lovastatin 40 mg tablet 40 mg PO DAILY 08/07/19 03/20/22 apixaban 5 mg tablet (Eliquis) 5 mg PO BID 03/20/22 03/20/22 olanzapine 10 mg tablet 10 mg PO DAILY 03/20/22 03/20/22 Allergies Allergy/AdvReac Type Severity Reaction Status Date / Time erythromycin base Allergy Intermediate HIVES Verified 04/25/22 20:43 paroxetine Allergy Intermediate Hives Verified 04/25/22 20:43 sertraline Allergy Intermediate Hives Verified 04/25/22 20:43 trazodone Allergy Intermediate HIVES Verified 04/25/22 20:43 Review of Systems Review of Systems: CONSTITUTIONAL: Denies night sweats. EYES: No eye pain ENT: Denies rhinorrhea CARDIOVASCULAR: Denies palpitations RESPIRATORY: Denies hemoptysis GASTROINTESTINAL: Denies hematemesis GENITOURINARY: Denies hematuria. SKIN: Denies rash MUSCULOSKELETAL: Denies myalgia. NEUROLOGIC: Denies weakness. PSYCHIATRIC: Denies delusions PMFSH Past Medical History Medical History Anxiety Colon polyps Depression GERD (gastroesophageal reflux disease) History of revision of total replacement of right hip joint Hx of deep venous thrombosis Hyperlipidemia AMADA (obstructive sleep apnea) Surgical History Surgical History H/O rectal polypectomy Status post total hip replacement, right Family History Family History Father Family history of malignant neoplasm of esophagus Patient's father is Mother Patient's mother is in good health Sibling Patient's brother is in good health Daughter Sleep apnea Other Cerebrovascular accident Family history of cardiovascular disease Family history of mental disorder Social History Social History Social History: Patient is and lives with his . He smokes a pack a cigarettes a day. He is retired from a [employer]. He also previously heavily drink alcohol. He does designate his as his POA. Code status full code Smoking packs per day: 3 Smoking cigarettes per day: 60.0 Smoking status: Former smoker Second hand tobacco smoke exposure: No Smoking end date: 08/01/12 Alcohol intake: former Drinks per week: 6 Alcohol use details: Previously drank 2-3 beers per day but quit 13-14 years ago. Substance use: never Gender identity (if verbalized by the patient): Male Spiritual care concerns: No Agree to blood products: No Exam Narrative: APPEARANCE: No apparent distress. Head atraumatic. EYES: PERRLA/EOMI, Pupils are 2 mm equal and reactive NOSE: Normal no drainage NECK: Supple, Trachea midline RESPIRATORY: CTAB, No increased work of breathing. CARDIOVASCULAR: S1S2 appreciated Plus two edema of the lower extremities - chronic ABDOMINAL: Soft, nontender,
[2022-04-25] MEDS: SODIUM CHLORIDE 0.9% IV 1,000 ML 999 ML IV CONT ×2 (21:54→22:30)
[2022-04-25] MEDS: IBUPROFEN 400 MG TABLET 800 MG PO (21:55)
[2022-04-25] MEDS: ACETAMINOPHEN 500 MG TABLET 1000 MG PO (21:55)
[2022-04-25 21:58] LABS: Glucose Point of Care 106 mg/dl (65-105)
[2022-04-25 22:01] LABS: Basophils Percent Auto 0.2 % (0.2-1.2); Eosinophils Percent Auto 0.3 % (0-4.4); Hematocrit 45.1 % (42.0-52.0); Hemoglobin 14.9 g/dL (14.0-18.0); Immature Granulocyte Absolute 0.07 K/mm3 (0.00-0.031); Immature Granulocyte Percent A 0.5 % (0-0.5); Lymphocytes Absolute Auto 0.58 K/mm3 (0.9-3.2); Lymphocytes Percent Auto 4.1 % (18.3-44.2); Mean Corpuscular Hemoglobin 31.1 pg (26-34); Mean Corpuscular Volume 94.2 fl (80-100); Mean Platelet Volume 10.4 fl (7.4-10.4); Monocytes Absolute Auto 0.9 K/mm3 (0.1-0.6); Monocytes Percent Auto 6.3 % (2.6-8.5); Neutrophils Absolute Auto 12.6 K/mm3 (1.3-6.7); Neutrophils Percent Auto 88.6 % (45.5-73.1); Platelet Count Result 202 k/mm3 (150-375); Red Blood Count 4.79 M/mm3 (4.6-6.20); Red Cell Distribution Width 14.1 % (11.5-14.5); White Blood Count 14.2 K/mm3 (4.5-10.0)
[2022-04-25] MEDS: APIXABAN 5 MG TABLET PO (22:01)
[2022-04-25 22:06] LABS: Appearance Urine Clear (Clear); Bilirubin Urine Negative (Negative); Blood Urine Negative (Negative); Color Urine Yellow (Yellow); Glucose Urine UA Negative (Negative); Ketones Urine Negative (Negative); Leukocyte Esterase Ur Trace LEU/UL (Negative); Nitrate Urine Negative (Negative); Protein Urine Negative (Negative); Urobilinogen Urine 0.2 mg/dL (<2.0)
[2022-04-25 22:10] LABS: Ethanol 124 mg/dL (<10)
[2022-04-25 22:12] LABS: Alanine Aminotransferase 18 U/L (6-50); Albumin Level 3.3 g/dL (3.5-5.1); Alkaline Phosphatase 108 U/L (38-126); Anion Gap 13 mmol/L (8-16); Aspartate Amino Transferase 27 U/L (17-59); Bilirubin,Total 0.3 mg/dL (0.2-1.3); Blood Urea Nitrogen 16 mg/dL (9-20); Calcium 8.5 mg/dL (8.4-10.2); Carbon Dioxide 22 mmol/L (22-30); Chloride 106 mmol/L (98-107); Estimated Glomerular Filt Rate > 60; Glucose 102 mg/dL (65-110); Lipase 137 U/L (23-300); Magnesium 2.1 mg/dL (1.6-2.3); Potassium 3.5 mmol/L (3.4-5.0); Sodium 141 mmol/L (137-145)
[2022-04-25 22:13] LABS: Mucus Urine Rare /lpf
[2022-04-25 22:14] LABS: Add Urine Microscopic? YES
[2022-04-25 22:15] LABS: INR 1.2; Partial Thromboplastin Time 27.9 SECONDS (22.3-36.8); Prothrombin Time 15.2 Seconds (11.1-14.7)
[2022-04-25 22:20] LABS: Amphetamine Screen Urine Negative (Negative); Barbiturate Screen Urine Negative (Negative); Benzodiazepines Screen Urine Negative (Negative); Cannabinoid Screen Urine Negative (Negative); Cocaine Screen Urine Negative (Negative); Methadone Screen Urine Negative (Negative); Opiate Screen Urine Negative (Negative); Phencyclidine Screen Urine Negative (Negative)
[2022-04-25 22:23] LABS: Troponin I < 0.012 ng/mL (0.000-0.034)
[2022-04-25] MEDS: PROPOFOL IV EMULSION 200 MG/20 ML VIAL IV PUSH (22:35)
[2022-04-25 22:38] LABS: SARS-CoV-2 RNA PCR Negative
[2022-04-25] MEDS: HYDROcodone/acetaminophen (*CRX) 5-325 MG TABLET 2 TAB PO (23:48)
--- NOTE | 2022-04-25 23:53 | PC.NURSE ---
Called patients to update her on patients plan of care and his admission.
[2022-04-26] VITALS (9 sets, daily range): BP systolic 136–148; BP diastolic 80–84; PULSE 72–97; RESP 16–20; TEMP 36–36.9; O2SAT 92–94; BMI 24.9
--- NOTE | 2022-04-26 00:15 | ADMGEN ---
This patient, Maximiliano Platt, was admitted to 3 [facility] Surg Room 314-01. Patient/family oriented to hospital policies and general routines including ID bracelet, bed and alarms, visiting hours, pain management, procedures, bathroom and other care routines, personal items, smoking policy, room service/diet, and visiting hours. Information on how to activate the Rapid Response Team has been discussed. Patient/Family are encouraged to report perceived risks to care and to ask questions if they do not understand what they are told or what they should do.
--- NOTE | 2022-04-26 00:21 | PM.IMHP ---
H&P: HPI History of Present Illness Date/Time: 04/26/22 00:21 Chief Complaint: Fallls Narrative: this is a 66-year-old male with past medical history significant for dementia, GERD, obstructive sleep apnea, did vent thrombosis on anticoagulation. Patient was brought to the emergency room for evaluation after recurrent falling patient is unable to give much history due to his dementia is able to give short answers for the most part denies any pain at the time of my visit. Patient had hip replaced and revision has been falling quite frequently in emergency room he was found to have dislocated this hip. Patient is been admitted for further evaluation management and treatment. Review of Systems Review of Systems: ROS unobtainable: Yes unobtainable due to medical condition ( Dementia) PMFSH Past Medical History Medical History Anxiety Colon polyps Depression GERD (gastroesophageal reflux disease) History of revision of total replacement of right hip joint Hx of deep venous thrombosis Hyperlipidemia AMADA (obstructive sleep apnea) Surgical History Surgical History H/O rectal polypectomy Status post total hip replacement, right Family History Family History Father Family history of malignant neoplasm of esophagus Patient's father is Mother Patient's mother is in good health Sibling Patient's brother is in good health Daughter Sleep apnea Other Cerebrovascular accident Family history of cardiovascular disease Family history of mental disorder Social History Social History Social History: Patient is and lives with his . He smokes a pack a cigarettes a day. He is retired from a [employer]. He also previously heavily drink alcohol. He does designate his as his POA. Code status full code Smoking packs per day: 1 Smoking cigarettes per day: 20.0 Smoking status: Former smoker Second hand tobacco smoke exposure: No Smoking end date: 04/19/22 Alcohol intake: current Drinks per week: 2 Alcohol use details: Previously drank 2-3 beers per day but quit 13-14 years ago. Substance use: never Gender identity (if verbalized by the patient): Male Spiritual care concerns: No Agree to blood products: No Meds Home Medications and Allergies Home Medications Medication Instructions Recorded Confirmed Type apixaban 5 mg tablet (Eliquis) 5 mg PO BID 03/20/22 04/26/22 History olanzapine 10 mg tablet 10 mg PO DAILY 03/20/22 04/26/22 History Allergies Allergy/AdvReac Type Severity Reaction Status Date / Time erythromycin base Allergy Intermediate HIVES Verified 04/25/22 20:43 paroxetine Allergy Intermediate Hives Verified 04/25/22 20:43 sertraline Allergy Intermediate Hives Verified 04/25/22 20:43 trazodone Allergy Intermediate HIVES Verified 04/25/22 20:43 Vital Signs Vital Signs - 24 hr 04/25/22 20:36 04/25/22 22:24 04/25/22 22:32 Temperature 97.5 F L 97.6 F 97.6 F Pulse Rate 96 Pulse Rate [Monitor] 69 76 Respiratory Rate 17 12 14 Blood Pressure 118/80 Blood Pressure [Right Arm] Pulse Oximetry 94 97 95 Oxygen Delivery Room Air Room Air Room Air 04/25/22 22:35 04/25/22 22:39 04/25/22 22:44 Temperature 97.9 F 98.0 F 98.0 F Pulse Rate Pulse Rate [Monitor] 95 82 79 Respiratory Rate 12 19 20 Blood Pressure Blood Pressure [Right Arm] 152/83 H 131/73 131/71 Pulse Oximetry 95 100 100 Oxygen Delivery Room Air Room Air Room Air 04/25/22 22:49 04/25/22 22:54 04/25/22 22:59 Temperature 97.4 F L 97.6 F 97.6 F Pulse Rate Pulse Rate [Monitor] 77 77 76 Respiratory Rate 16 18 16 Blood Pressure Blood Pressure [Right Arm] 137/72 143/75 H 134/79 Pulse Oximetry 100 100 98 Oxygen Delivery Room Air Room Air Room
[2022-04-26] MEDS: LORazepam (*CRX) 1 MG TABLET 2 MG PO ×3 (09:12→16:54)
[2022-04-26] MEDS: clonazePAM (*CRX) 0.5 MG TABLET 1 MG PO ×2 (09:12→16:54)
[2022-04-26] MEDS: MIRTAZAPINE 15 MG TABLET 45 MG PO (09:12)
[2022-04-26] MEDS: VENLAFAXINE HCL XR 75 MG CAP.ER.24H 150 MG PO (09:12)
[2022-04-26] MEDS: APIXABAN 5 MG TABLET PO ×2 (09:12→16:54)
--- NOTE | 2022-04-26 11:57 | PM.IMPN ---
Progress Note: A&P Assessment and Plan (1) Dislocation, hip: Code(s): S73.006A - Unspecified dislocation of unspecified hip, initial encounter Status: Acute Assessment and Plan: - Fall Precautions - Consult Orthopedics - PRN Pain management - Bedrest - Wear knee immobilizer (2) Wrist fracture, closed: Code(s): S62.109A - Fracture of unspecified carpal bone, unspecified wrist, initial encounter for closed fracture Status: Acute Assessment and Plan: - Keep splinted. - Consult ortho - Pain control - Will need PT and OT when appropriate. (3) Leukocytosis: Code(s): D72.829 - Elevated white blood cell count, unspecified Status: Acute Assessment and Plan: - Most Likely reactive, however, pt. has some Leukocytosis as well. - Rocephin started in ER and continued in hospital. - Cultures pending. (4) AMADA (obstructive sleep apnea): Code(s): G47.33 - Obstructive sleep apnea (adult) (pediatric) Status: Acute Assessment and Plan: - CPAP at nighttime, home settings. (5) GERD (gastroesophageal reflux disease): Qualifiers: Esophagitis presence: esophagitis presence not specified Qualified Code(s): K21.9 - Gastro-esophageal reflux disease without esophagitis Code(s): K21.9 - Gastro-esophageal reflux disease without esophagitis Status: Acute Assessment and Plan: PPI as needed (6) Acute deep vein thrombosis (DVT) of right lower extremity: Qualifiers: Affected thrombotic vein of extremity: femoral Qualified Code(s): I82.411 - Acute embolism and thrombosis of right femoral vein Code(s): I82.401 - Acute embolism and thrombosis of unspecified deep veins of right lower extremity Status: Acute Assessment and Plan: - continue Eliquis, will need held prior to OR. (7) Adult failure to thrive: Code(s): R62.7 - Adult failure to thrive Status: Acute Assessment and Plan: - History of. - Will require PT and OT when appropriate after cleared by Ortho. Time Spent With Patient Time with patient: 15 - 25 minutes Subjective Date/time seen: 04/26/22 4831 This pt was examined at the bedside today in interval assessment after being admitted status post fall at home with fracture of the left wrist and dislocation of the right hip. He had reduction and splinting of both the wrist and the right hip in the ER and the wrist is splinted. There is a knee immobilizer to the right knee. The pt. is unable to be cared for at home and is desiring placement. He has a history of attempted suicide last month in March, however, and in the intoxicated state he presented in last evening, he answered inappropriately to the nurse on evening shift that concerned the nurse for possible SI. However, this AM upon speaking with patient in a state of not being intoxicated any longer, and with no being A&Ox4 currently, he is asked if he has any current desire to harm himself or kill himself and he answered, No. I did a month ago, but not now. I also asked if he felt in anyway today the same way that he did a month ago, and he answered again, No. He has some complaints of pain in the left wrist and in the right hip. We are awaiting on the Orthopedic consult currently. He was also found to have a UTI and is being treated with abx. of Rocephin. He is on Eliquis for hx. of DVT. Review of Systems Review of Systems: All systems reviewed & are unremarkable except as noted in HPI and below Exam Const: General: uncomfortable Other: Elderly male patient lying supine in bed at this time having some pain from his new orthopedic injuries. HENMT: Ears: TM's normal bilaterally General nose exam: Normal nares present and no epistaxis Mouth: Yes moist mucous membranes Eyes: General: appearance normal, both eyes and all related structures Sclera: sclerae normal Pupils: Equal, round and reactive pupils present EOM: EOMs intact b
--- NOTE | 2022-04-26 12:51 | PM.CNOR ---
Assessment and Plan Assessment and plan (1) Wrist fracture, closed: Qualifiers: Encounter type: initial encounter Laterality: left Qualified Code(s): S62.102A - Fracture of unspecified carpal bone, left wrist, initial encounter for closed fracture <Katelin Guadarraam, [facility] - Last Filed: 04/26/22 16:03> Code(s): S62.109A - Fracture of unspecified carpal bone, unspecified wrist, initial encounter for closed fracture <Katelin Guadarrama, [facility] - Last Filed: 04/26/22 16:03> Status: Acute <Katelin Guadarrama, [facility] - Last Filed: 04/26/22 16:03> Assessment and Plan: History, exam and radiographs reviewed. Radiographs of the left wrist reveals comminuted fractures of distal left radius with involvement of the distal radioulnar joint and distal articular surface. Avulsion fracture of the ulnar styloid noted as well. The fracture type and injury as well as radiographs discussed with the patient. Operative and nonoperative treatment options reviewed. Will continue conservative treatment at this time with splint and elevation. Ice. Pain control. Will determine surgical vs. operative treatment recommendations after evaluation by Dr. Briseno. <Katelin Guadarrama, [facility] - Last Filed: 04/26/22 16:03> (2) Dislocation, hip: Qualifiers: Encounter type: initial encounter Laterality: right Qualified Code(s): S73.004A - Unspecified dislocation of right hip, initial encounter <Katelin Guadarrama, [facility] - Last Filed: 04/26/22 16:03> Code(s): S73.006A - Unspecified dislocation of unspecified hip, initial encounter <Katelin Guadarrama, [facility] - Last Filed: 04/26/22 16:03> Status: Acute <Katelin Guadarrama, [facility] - Last Filed: 04/26/22 16:03> Assessment and Plan: History of right [place]EN [place] [address] Ontiveros. Revision [place] [address] John Cedeno due to component failure and infection. Revision performed in November of 2018. Patient underwent 6 weeks of antibiotics post operatively. Right hip dislocation occurred after fall. Successful reduction of hip noted. Patient would benefit from hip abductor brace for stabilization and to prevent recurrence. Patient would likely benefit from a follow up appointment with Dr. Cedeno at discharge for reevaluation given frequent pain, falls and inability to fully ambulate due to right hip pain per records. Patient may also benefit from [facility] or SNF for further rehab given history of multiple falls. WBAT with Hip Abductor Brace. Walker. HIGH Fall precautions. <ROXANN Watson - Last Filed: 04/26/22 16:03> (3) Acute alcohol intoxication: Code(s): F10.929 - Alcohol use, unspecified with intoxication, unspecified <ROXANN Watson - Last Filed: 04/26/22 16:03> Status: Acute <ROXANN Watson - Last Filed: 04/26/22 16:03> (4) Distal radius fracture, left: Code(s): S52.502A - Unspecified fracture of the lower end of left radius, initial encounter for closed fracture <ROXANN Watson - Last Filed: 04/26/22 16:03> Status: Acute <ROXANN Watson - Last Filed: 04/26/22 16:03> (5) Bipolar disorder: Code(s): F31.9 - Bipolar disorder, unspecified <ROXANN Watson - Last Filed: 04/26/22 16:03> Status: Acute <ROXANN Watson - Last Filed: 04/26/22 16:03> Assessment and Plan: Patient recently discharged from [facility] to a psychiatric facility. <ROXANN Watson - Last Filed: 04/26/22 16:03> Assessment and Plan: Radiographs reviewed, discussed with ROXANN Conte. Plan consertavive tx rt hip. Nonoptx lt wrist given medical/ psych condition <Harjinder Briseno MD - Last Filed: 04/27/22 08:18> History of Present Illness HPI Consult date: 04/26/22 <ROXANN Watson - Last Filed: 04/26/22 16:03> 04/27/22 <Harjinder Briseno MD - Last Filed: 04/27/22 08:18> Chief complaint: failure to thrive <ROXANN Watson - Last Filed: 04/26/22 16:03> Narrative:
--- NOTE | 2022-04-26 13:45 | PC.NURSE ---
40mg Pantoprazole received from pharmacy at 1344; schedule to be administered at 1300 by pharmacy
[2022-04-26] MEDS: PANTOPRAZOLE SODIUM IV 40 MG VIAL IV PUSH (13:50)
[2022-04-26] MEDS: MORPHINE SULFATE (*CRX) 2 MG/ML INJ IV PUSH (18:07)
[2022-04-26] MEDS: OLANZapine 5 MG TABLET PO (20:18)
[2022-04-27 06:00] VITALS: BP 146/85; PULSE 84; RESP 18; TEMP 36.6; O2SAT 93
--- NOTE | 2022-04-27 08:18 | PM.PNORT ---
Progress Note: A&P Assessment and Plan (1) Dislocation, hip: Qualifiers: Encounter type: subsequent encounter Laterality: right Qualified Code(s): S73.004D - Unspecified dislocation of right hip, subsequent encounter Code(s): S73.006A - Unspecified dislocation of unspecified hip, initial encounter Status: Acute Assessment and Plan: Right hip dislocation reduced in the emergency room. Total hip revision 3 years ago. Appears stable at this time. Plan conservative treatment. If further problems recommend follow-up with his revision surgeon. (2) Distal radius fracture, left: Qualifiers: Encounter type: subsequent encounter Fracture type: closed Fracture morphology: other intra-articular Fracture healing: with routine healing Qualified Code(s): S52.572D - Other intraarticular fracture of lower end of left radius, subsequent encounter for closed fracture with routine healing Code(s): S52.502A - Unspecified fracture of the lower end of left radius, initial encounter for closed fracture Status: Acute Assessment and Plan: left distal radius fracture for with reduction in the emergency room and splinting. History, physical exam and radiographs reviewed with the patient. Type of fracture discussed in detail. Treatment options including operative and non operative treatment reviewed. Risks, benefits and alternatives of each treatment discussed in detail. The patient has declined surgical treatment. Risks of treatment decision discussed in detail. Potential problems with displacement of the fracture, loss of alignment, nonunion, malunion and dysfunction discussed in detail. The patient's questions were answered. They verbalized understanding and agreement. Conservative treatment with immobilization, ice, compression and elevation. Continue with edema control -ice and elevate. Pain control. Plan to transition to a Velcro splint prior to discharge. Subjective Subjective Date/Time Seen: 04/27/22 08:18 Principal diagnosis: Right hip dislocation, left distal radius fracture Interval history: patient is sleeping comfortably. Awakens to voice. Complains of pain with movement. Exam Const: General: comfortable and no acute distress HENMT: Mouth: Yes moist mucous membranes Eyes: General: appearance normal, both eyes and all related structures Neck: Neck: supple and no JVD Resp: Effort & Inspection: normal respiratory effort Cardio: Rate: regular rate Rhythm: regular rhythm GI: Inspection: non-distended GI Palp: Yes Soft to palpation and No Tenderness to palpation present (GI) Neuro: General: gait normal Cognition (Neuro): normal cognition Speech: normal speech Extrem: Left upper extremity: shoulder/upper arm inspection abnormal; no tenderness and no swelling, elbow/forearm (splint in place ), wrist (Sugar tong splint in place ) tenderness (diffuse ) and hand normal capillary refill, neurosensory exam normal (sensation intact ), normal ROM of fingers and ecchymosis (all fingers ); no tenderness and no abrasions Right lower extremity: hip/thigh Details: normal to inspection and abnormal ROM (deferred due to recent dislocation. ); no tenderness, no swelling, no abrasions, no lacerations and no ecchymosis and knee (Knee immobilizer in place ) Psych: Mental Status: mental status grossly normal Affect: normal affect Objective Data Vital Signs Vital Signs: Vital Signs - 24 hr 04/26/22 09:15 04/26/22 14:00 04/26/22 21:52 Temperature 97.3 F L 98.4 F Pulse Rate 83 97 Respiratory Rate 19 18 Blood Pressure 136/80 148/80 H Pulse Oximetry 93 92 Oxygen Delivery Room Air 04/26/22 20:20 04/27/22 06:00 Temperature 97.9 F Pulse Rate 97 84 Respiratory Rate 18 18 Blood Pressure 146/85 H Pulse Oximetry 92 93 Oxygen Delivery Room Air Intake/Output Intake/Output: Intake & Output 04/24/22 04/25/22 04/26/22 04/27/22 23:59 23:59 23:59 23:59
[2022-04-27 08:54] VITALS: BP 125/76; PULSE 94; O2SAT 93
[2022-04-27] MEDS: VENLAFAXINE HCL XR 75 MG CAP.ER.24H 150 MG PO (08:56)
[2022-04-27] MEDS: MIRTAZAPINE 15 MG TABLET 45 MG PO (08:56)
[2022-04-27] MEDS: MORPHINE SULFATE (*CRX) 2 MG/ML INJ IV PUSH ×2 (08:56→14:32)
[2022-04-27] MEDS: clonazePAM (*CRX) 0.5 MG TABLET 1 MG PO ×2 (08:56→17:57)
[2022-04-27] MEDS: LORazepam (*CRX) 1 MG TABLET 2 MG PO ×2 (08:56→12:28)
[2022-04-27] MEDS: APIXABAN 5 MG TABLET PO ×2 (08:57→17:57)
[2022-04-27] MEDS: PANTOPRAZOLE SODIUM IV 40 MG VIAL IV PUSH (08:57)
[2022-04-27 11:27] LABS: Hematocrit 44.9 % (42.0-52.0); Hemoglobin 14.8 g/dL (14.0-18.0); Mean Corpuscular Hemoglobin 30.9 pg (26-34); Mean Corpuscular Volume 93.7 fl (80-100); Mean Platelet Volume 11.1 fl (7.4-10.4); Platelet Count Result 171 k/mm3 (150-375); Red Blood Count 4.79 M/mm3 (4.6-6.20); Red Cell Distribution Width 14.2 % (11.5-14.5); White Blood Count 11.4 K/mm3 (4.5-10.0)
[2022-04-27 11:32] LABS: Anion Gap 7 mmol/L (8-16); Blood Urea Nitrogen 13 mg/dL (9-20); Calcium 8.5 mg/dL (8.4-10.2); Carbon Dioxide 25 mmol/L (22-30); Chloride 102 mmol/L (98-107); Estimated CRCL calculation 101 ml/min; Estimated Glomerular Filt Rate > 60; Glucose 119 mg/dL (65-110); Sodium 134 mmol/L (137-145)
--- NOTE | 2022-04-27 13:33 | PCOTNOTE ---
Attempted OT evaluation, unable to complete at this time due to hip abductor brace not here yet, will follow and attempt when brace arrives.
[2022-04-27 14:00] VITALS: BP 128/88; PULSE 99; RESP 20; TEMP 36.2; O2SAT 91
--- NOTE | 2022-04-27 15:23 | P.PNIM_ITS ---
Progress Note: A&P Assessment and Plan (1) Dislocation, hip: Qualifiers: Encounter type: subsequent encounter Laterality: right Qualified Code(s): S73.004D - Unspecified dislocation of right hip, subsequent encounter Code(s): S73.006A - Unspecified dislocation of unspecified hip, initial encounter Status: Acute Assessment and Plan: patient with history of right [place] hip [place] [address] Ontiveros with revision and [address] John Cedeno. dislocated following fall * x-ray showed dislocated total right hip arthroplasty. * successfully reduced in the ED * appreciate orthopedic surgery consultation * hip abductor brace recommended by ortho, awaiting brace from [employer] * will need outpatient follow up with Dr. Cedeno for re-evaluation. * weight bearing as tolerated with walker * fall precautions implemented * appreciate PT/OT eval * will likely require SNF following discharge (2) Wrist fracture, closed: Qualifiers: Encounter type: initial encounter Laterality: left Qualified Code(s): S62.102A - Fracture of unspecified carpal bone, left wrist, initial encounter for closed fracture Code(s): S62.109A - Fracture of unspecified carpal bone, unspecified wrist, initial encounter for closed fracture Status: Acute Assessment and Plan: secondary to fall. * Radiographs showed comminuted fractures of distal left radius with involvement of distal radioulnar joint and distal articular surface and avulsion fracture of the ulnar styloid. * Conservative management per Orthopedic surgery recommendations. Patient declined surgery * Continue wrist splint * Elevate extremity * supportive care. Analgesics available as needed. (3) Leukocytosis: Code(s): D72.829 - Elevated white blood cell count, unspecified Status: Acute Assessment and Plan: likely reactive secondary to fall/injury * WBC trending down today * patient started on Rocephin. Will discontinue at this time. UA without concerns for infection, CXR without concerns for infection. No additional signs /symptoms to suggest underlying infectious process (4) AMADA (obstructive sleep apnea): Code(s): G47.33 - Obstructive sleep apnea (adult) (pediatric) Status: Acute Assessment and Plan: CPAP at nighttime, home settings. (5) History of suicide attempt: Code(s): Z91.51 - Personal history of suicidal behavior Status: Acute Assessment and Plan: Intentional benzodiazepine overdose on 03/20/2022 * managed at this facility and transferred to inpatient psychiatric facility where he stayed for 8 days * did not follow-up with his psychiatrist, stating he was embarrassed. * denies suicidal ideation at this time. * continue Zyprexa and clonazepam. Needs outpatient follow up with psychiatrist to consider taper off clonazepam and alternative treatment options * resources including suicide hotline information provided to patient (6) Acute alcohol intoxication: Code(s): F10.929 - Alcohol use, unspecified with intoxication, unspecified Status: Acute Assessment and Plan: patient fell while acutely intoxicated. Ethyl alcohol level on arrival was 124 * patient endorses drinking 2-3 small cups of vodka, estimating less than 1 oz per cup * reports history of heavy drinking but now states 1-2 drinks ( wine or vodka) 1-2 times per week * no evidence of alcohol withdrawal symptoms, no history of alcohol withdrawal symptoms * last drink would be the evening of 04/25/
--- NOTE | 2022-04-27 15:23 | PM.IMPN ---
Progress Note: A&P Assessment and Plan (1) Dislocation, hip: Qualifiers: Encounter type: subsequent encounter Laterality: right Qualified Code(s): S73.004D - Unspecified dislocation of right hip, subsequent encounter Code(s): S73.006A - Unspecified dislocation of unspecified hip, initial encounter Status: Acute Assessment and Plan: patient with history of right [place] hip [place] [address] Ontiveros with revision and [address] John Cedeno. dislocated following fall x-ray showed dislocated total right hip arthroplasty. successfully reduced in the ED appreciate orthopedic surgery consultation hip abductor brace recommended by ortho, awaiting brace from [employer] will need outpatient follow up with Dr. Cedeno for re-evaluation. weight bearing as tolerated with walker fall precautions implemented appreciate PT/OT eval will likely require SNF following discharge (2) Wrist fracture, closed: Qualifiers: Encounter type: initial encounter Laterality: left Qualified Code(s): S62.102A - Fracture of unspecified carpal bone, left wrist, initial encounter for closed fracture Code(s): S62.109A - Fracture of unspecified carpal bone, unspecified wrist, initial encounter for closed fracture Status: Acute Assessment and Plan: secondary to fall. Radiographs showed comminuted fractures of distal left radius with involvement of distal radioulnar joint and distal articular surface and avulsion fracture of the ulnar styloid. Conservative management per Orthopedic surgery recommendations. Patient declined surgery Continue wrist splint Elevate extremity supportive care. Analgesics available as needed. (3) Leukocytosis: Code(s): D72.829 - Elevated white blood cell count, unspecified Status: Acute Assessment and Plan: likely reactive secondary to fall/injury WBC trending down today patient started on Rocephin. Will discontinue at this time. UA without concerns for infection, CXR without concerns for infection. No additional signs /symptoms to suggest underlying infectious process (4) AMADA (obstructive sleep apnea): Code(s): G47.33 - Obstructive sleep apnea (adult) (pediatric) Status: Acute Assessment and Plan: CPAP at nighttime, home settings. (5) History of suicide attempt: Code(s): Z91.51 - Personal history of suicidal behavior Status: Acute Assessment and Plan: Intentional benzodiazepine overdose on 03/20/2022 managed at this facility and transferred to inpatient psychiatric facility where he stayed for 8 days did not follow-up with his psychiatrist, stating he was embarrassed. denies suicidal ideation at this time. continue Zyprexa and clonazepam. Needs outpatient follow up with psychiatrist to consider taper off clonazepam and alternative treatment options resources including suicide hotline information provided to patient (6) Acute alcohol intoxication: Code(s): F10.929 - Alcohol use, unspecified with intoxication, unspecified Status: Acute Assessment and Plan: patient fell while acutely intoxicated. Ethyl alcohol level on arrival was 124 patient endorses drinking 2-3 small cups of vodka, estimating less than 1 oz per cup reports history of heavy drinking but now states 1-2 drinks ( wine or vodka) 1-2 times per week no evidence of alcohol withdrawal symptoms, no history of alcohol withdrawal symptoms last drink would be the evening of 04/25/2022 patient will benefit from complete cessation of alcohol use. resources to be provided (7) Hx of deep venous thrombosis: Code(s): Z86.718 - Personal history of other venous thrombosis and embolism Status: Acute Assessment and Plan: No issues Continue home Eliquis Subjective Date/time seen: 04/27/22 15:23 Interval history: Date of service:
[2022-04-27] MEDS: OLANZapine 5 MG TABLET PO (20:51)
[2022-04-27 22:00] VITALS: BP 123/79; PULSE 91; RESP 18; TEMP 36.6; O2SAT 90
--- NOTE | 2022-04-28 05:14 | PC.NURSE ---
Pt resting in bed. Pt has left soft cast and right knee immobilizer. Pt has used his pull up multiple times over night. Pt was concerned that he did not get his eliquis overnight. Pt was educated that it had not been ordered for that time of day. Pt compliant with care. Will continue to monitor pt.
[2022-04-28 05:48] VITALS: BP 124/75; PULSE 90; RESP 16; TEMP 36.7; O2SAT 90
[2022-04-28 06:19] LABS: Basophils Absolute Auto 0.1 K/mm3 (0.0-0.1); Basophils Percent Auto 0.9 % (0.2-1.2); Eosinophils Absolute Auto 0.3 K/mm3 (0-0.3); Eosinophils Percent Auto 4.9 % (0-4.4); Immature Granulocyte Absolute 0.01 K/mm3 (0.00-0.031); Immature Granulocyte Percent A 0.1 % (0-0.5); Lymphocytes Absolute Auto 0.88 K/mm3 (0.9-3.2); Lymphocytes Percent Auto 12.7 % (18.3-44.2); Mean Corpuscular HGB Conc 32.6 g/dl (32-36); Mean Corpuscular Hemoglobin 31.5 pg (26-34); Mean Corpuscular Volume 96.8 fl (80-100); Mean Platelet Volume 11.1 fl (7.4-10.4); Monocytes Absolute Auto 0.7 K/mm3 (0.1-0.6); Monocytes Percent Auto 9.6 % (2.6-8.5); Neutrophils Percent Auto 71.8 % (45.5-73.1); Platelet Count Result 154 k/mm3 (150-375); Red Blood Count 4.44 M/mm3 (4.6-6.20); Red Cell Distribution Width 14.1 % (11.5-14.5); White Blood Count 6.9 K/mm3 (4.5-10.0)
[2022-04-28 06:25] LABS: Anion Gap 7 mmol/L (8-16); Blood Urea Nitrogen 12 mg/dL (9-20); Calcium 8.4 mg/dL (8.4-10.2); Carbon Dioxide 27 mmol/L (22-30); Chloride 102 mmol/L (98-107); Estimated CRCL calculation 101 ml/min; Estimated Glomerular Filt Rate > 60; Glucose 101 mg/dL (65-110); Potassium 3.7 mmol/L (3.4-5.0); Sodium 136 mmol/L (137-145)
--- NOTE | 2022-04-28 08:32 | PCOTNOTE ---
Attempted OT evaluation, unable to complete at this time due to hip abductor brace not here yet, will follow and attempt when brace arrives.
--- NOTE | 2022-04-28 08:48 | PCPTNOTE ---
Attempted PT evaluation, unable to complete at this time due to hip abductor brace not here yet, will follow and attempt when brace arrives.
[2022-04-28] MEDS: APIXABAN 5 MG TABLET PO ×2 (08:51→16:34)
[2022-04-28] MEDS: VENLAFAXINE HCL XR 75 MG CAP.ER.24H 150 MG PO (08:51)
[2022-04-28] MEDS: clonazePAM (*CRX) 0.5 MG TABLET 1 MG PO ×2 (08:51→16:33)
[2022-04-28] MEDS: MIRTAZAPINE 15 MG TABLET 45 MG PO (08:51)
[2022-04-28] MEDS: PANTOPRAZOLE SODIUM IV 40 MG VIAL IV PUSH (08:51)
[2022-04-28 14:00] VITALS: BP 122/78; PULSE 90; RESP 20; TEMP 36.9; O2SAT 94
--- NOTE | 2022-04-28 15:14 | PCPTNOTE ---
Dr. Briseno contacted in regards to appropriate bracing to be worn by pt. Per Dr. Briseno, the pt only needs to be using R hip abductor brace (R knee immobilizer to be discontinued). RN aware.
--- NOTE | 2022-04-28 16:07 | P.PNIM_ITS ---
Progress Note: A&P Assessment and Plan (1) Dislocation, hip: Qualifiers: Encounter type: subsequent encounter Laterality: right Qualified Code(s): S73.004D - Unspecified dislocation of right hip, subsequent encounter Code(s): S73.006A - Unspecified dislocation of unspecified hip, initial encounter Status: Acute Assessment and Plan: patient with history of right [place] [address] Ontiveros with revision and [address] John Cedeno. dislocated following fall * x-ray showed dislocated total right hip arthroplasty. * successfully reduced in the ED * appreciate orthopedic surgery consultation * continue with right hip abductor brace * will need outpatient follow up with Dr. Cedeno for re-evaluation. * weight bearing as tolerated with walker * fall precautions implemented * appreciate PT/OT eval * will likely require SNF following discharge (2) Wrist fracture, closed: Qualifiers: Encounter type: initial encounter Laterality: left Qualified Code(s): S62.102A - Fracture of unspecified carpal bone, left wrist, initial encounter for closed fracture Code(s): S62.109A - Fracture of unspecified carpal bone, unspecified wrist, initial encounter for closed fracture Status: Acute Assessment and Plan: secondary to fall. * Radiographs showed comminuted fractures of distal left radius with involvement of distal radioulnar joint and distal articular surface and avulsion fracture of the ulnar styloid. * Conservative management per Orthopedic surgery recommendations. Patient declined surgery * Continue wrist splint * Elevate extremity * supportive care. Analgesics available as needed. (3) Leukocytosis: Code(s): D72.829 - Elevated white blood cell count, unspecified Status: Resolved Assessment and Plan: Resolved. likely reactive secondary to fall/injury * WBC 6.9 today (4) AMADA (obstructive sleep apnea): Code(s): G47.33 - Obstructive sleep apnea (adult) (pediatric) Status: Acute Assessment and Plan: CPAP at nighttime, home settings. (5) History of suicide attempt: Code(s): Z91.51 - Personal history of suicidal behavior Status: Acute Assessment and Plan: Intentional benzodiazepine overdose on 03/20/2022 * managed at this facility and transferred to inpatient psychiatric facility where he stayed for 8 days * did not follow-up with his psychiatrist, stating he was embarrassed. * denies suicidal ideation at this time. * continue Zyprexa and clonazepam. Needs outpatient follow up with psychiatrist to consider taper off clonazepam and alternative treatment options * resources including suicide hotline information provided to patient (6) Acute alcohol intoxication: Code(s): F10.929 - Alcohol use, unspecified with intoxication, unspecified Status: Acute Assessment and Plan: patient fell while acutely intoxicated. Ethyl alcohol level on arrival was 124 * patient endorses drinking 2-3 small cups of vodka, estimating less than 1 oz per cup * reports history of heavy drinking but now states 1-2 drinks ( wine or vodka) 1-2 times per week * no evidence of alcohol withdrawal symptoms, no history of alcohol withdrawal symptoms * last drink was evening of 04/25/2022 * patient will benefit from complete cessation of alcohol use. resources to be provided (7) Hx of deep venous thrombosis: Code(s): Z86.718 - Personal history of other venous thrombosis and embolism S
--- NOTE | 2022-04-28 16:07 | PM.IMPN ---
Progress Note: A&P Assessment and Plan (1) Dislocation, hip: Qualifiers: Encounter type: subsequent encounter Laterality: right Qualified Code(s): S73.004D - Unspecified dislocation of right hip, subsequent encounter Code(s): S73.006A - Unspecified dislocation of unspecified hip, initial encounter Status: Acute Assessment and Plan: patient with history of right [place] [address] Ontiveros with revision and [address] John Cedeno. dislocated following fall x-ray showed dislocated total right hip arthroplasty. successfully reduced in the ED appreciate orthopedic surgery consultation continue with right hip abductor brace will need outpatient follow up with Dr. Cedeno for re-evaluation. weight bearing as tolerated with walker fall precautions implemented appreciate PT/OT eval will likely require SNF following discharge (2) Wrist fracture, closed: Qualifiers: Encounter type: initial encounter Laterality: left Qualified Code(s): S62.102A - Fracture of unspecified carpal bone, left wrist, initial encounter for closed fracture Code(s): S62.109A - Fracture of unspecified carpal bone, unspecified wrist, initial encounter for closed fracture Status: Acute Assessment and Plan: secondary to fall. Radiographs showed comminuted fractures of distal left radius with involvement of distal radioulnar joint and distal articular surface and avulsion fracture of the ulnar styloid. Conservative management per Orthopedic surgery recommendations. Patient declined surgery Continue wrist splint Elevate extremity supportive care. Analgesics available as needed. (3) Leukocytosis: Code(s): D72.829 - Elevated white blood cell count, unspecified Status: Resolved Assessment and Plan: Resolved. likely reactive secondary to fall/injury WBC 6.9 today (4) AMADA (obstructive sleep apnea): Code(s): G47.33 - Obstructive sleep apnea (adult) (pediatric) Status: Acute Assessment and Plan: CPAP at nighttime, home settings. (5) History of suicide attempt: Code(s): Z91.51 - Personal history of suicidal behavior Status: Acute Assessment and Plan: Intentional benzodiazepine overdose on 03/20/2022 managed at this facility and transferred to inpatient psychiatric facility where he stayed for 8 days did not follow-up with his psychiatrist, stating he was embarrassed. denies suicidal ideation at this time. continue Zyprexa and clonazepam. Needs outpatient follow up with psychiatrist to consider taper off clonazepam and alternative treatment options resources including suicide hotline information provided to patient (6) Acute alcohol intoxication: Code(s): F10.929 - Alcohol use, unspecified with intoxication, unspecified Status: Acute Assessment and Plan: patient fell while acutely intoxicated. Ethyl alcohol level on arrival was 124 patient endorses drinking 2-3 small cups of vodka, estimating less than 1 oz per cup reports history of heavy drinking but now states 1-2 drinks ( wine or vodka) 1-2 times per week no evidence of alcohol withdrawal symptoms, no history of alcohol withdrawal symptoms last drink was evening of 04/25/2022 patient will benefit from complete cessation of alcohol use. resources to be provided (7) Hx of deep venous thrombosis: Code(s): Z86.718 - Personal history of other venous thrombosis and embolism Status: Acute Assessment and Plan: Onset August 2019, maintained on chronic anticoagulation since that time Continue home Eliquis Subjective Date/time seen: 04/28/22 16:07 Interval history: Date of service: 04/28/2022 Maximiliano Platt is a 66-year-old male with a history of right hip replacement and revision, DVT on anticoagulation, AMADA, hyperlipidemia, GERD, anxiety, depression, bipolar di
[2022-04-28] MEDS: OLANZapine 5 MG TABLET PO (20:53)
[2022-04-28 22:00] VITALS: BP 139/79; PULSE 87; RESP 14; TEMP 36.1; O2SAT 91
--- NOTE | 2022-04-29 05:09 | PC.NURSE ---
Pt has no complaints at this time. Pt resting most of the night. Pt does have hip brace now. Pt continues to be WBAT. Pt has not gotten up for staff tonight. Pt compliant with care. Will continue to monitor pt.
[2022-04-29 05:32] VITALS: BP 142/82; PULSE 77; RESP 14; TEMP 36.1; O2SAT 91
[2022-04-29] MEDS: PANTOPRAZOLE SODIUM IV 40 MG VIAL IV PUSH (08:49)
[2022-04-29] MEDS: MIRTAZAPINE 15 MG TABLET 45 MG PO (08:49)
[2022-04-29] MEDS: VENLAFAXINE HCL XR 75 MG CAP.ER.24H 150 MG PO (08:49)
[2022-04-29] MEDS: APIXABAN 5 MG TABLET PO (08:49)
--- NOTE | 2022-04-29 13:01 | PM.DS ---
DS: Admitting Diagnosis Discharge Date 04/29/2022 Admitting Diagnosis right hip dislocation, left wrist fracture DS: Discharge Diagnosis Discharge Diagnosis (1) Dislocation, hip: Qualifiers: Encounter type: subsequent encounter Laterality: right Qualified Code(s): S73.004D - Unspecified dislocation of right hip, subsequent encounter Code(s): S73.006A - Unspecified dislocation of unspecified hip, initial encounter Status: Acute Assessment and Plan: patient with history of right total hip [place] [address] Ontiveros with revision and [address] John Cedeno. dislocated following fall x-ray showed dislocated total right hip arthroplasty. successfully reduced in the ED managed by Orthopedic surgery continue with right hip abductor brace weight bearing as tolerated with walker fall precautions implemented appreciate PT/OT eval. Continue therapy at SNF will need outpatient follow up with Dr. Cedeno for re-evaluation. (2) Wrist fracture, closed: Qualifiers: Encounter type: initial encounter Laterality: left Qualified Code(s): S62.102A - Fracture of unspecified carpal bone, left wrist, initial encounter for closed fracture Code(s): S62.109A - Fracture of unspecified carpal bone, unspecified wrist, initial encounter for closed fracture Status: Acute Assessment and Plan: Secondary to fall. Radiographs showed comminuted fractures of distal left radius with involvement of distal radioulnar joint and distal articular surface and avulsion fracture of the ulnar styloid. Conservative management per Orthopedic surgery recommendations. Patient declined surgery Continue wrist splint Supportive care. Analgesics available as needed. Elevate extremity Outpatient follow-up Dr. Briseno for monitoring (3) Leukocytosis: Code(s): D72.829 - Elevated white blood cell count, unspecified Status: Resolved Assessment and Plan: Resolved. likely reactive secondary to fall/injury (4) AMADA (obstructive sleep apnea): Code(s): G47.33 - Obstructive sleep apnea (adult) (pediatric) Status: Acute Assessment and Plan: CPAP at nighttime, home settings. (5) History of suicide attempt: Code(s): Z91.51 - Personal history of suicidal behavior Status: Acute Assessment and Plan: Intentional benzodiazepine overdose on 03/20/2022 for which she was managed at this facility and transferred to inpatient psychiatric facility where he stayed for 8 days. Has not followed up with his psychiatrist since his discharge because he was ?embarrassed.? Patient denied suicidal ideation during his hospitalization. Continue home Zyprexa. Clonazepam and lorazepam or on the patient's home medication list on presentation, the patient states both of these medications have been stopped for several weeks, therefore they were discontinued following admission. Patient will follow-up with Psychiatry at SNF. Resources provided including suicide hotline information. (6) Acute alcohol intoxication: Code(s): F10.929 - Alcohol use, unspecified with intoxication, unspecified Status: Acute Assessment and Plan: Patient fell while acutely intoxicated. Ethyl alcohol level on arrival was 124. Patient endorses drinking 2-3 small cups of vodka, estimating less than 1 oz per cup prior to fall. Reports history of heavy drinking but now states 1-2 drinks ( wine or vodka) 1-2 times per week. He has no history of alcohol withdrawal and did not have any alcohol withdrawal symptoms during admission. Given patient's fall risk, he should avoid excess alcohol intake, and ideally would benefit from complete cessation of alcohol use. Education provided. (7) Hx of deep venous thrombosis: Code(s): Z86.718 - Personal history of other venous thrombosis and embolism Status: Acute Assessment and Plan: Onset Hoang
[2022-04-29 14:00] VITALS: BP 125/73; PULSE 83; RESP 22; TEMP 36.1; O2SAT 92
[2022-04-29 14:18] LABS: EDCOVIDSCREEN Negative (Negative)
--- NOTE | 2022-04-29 14:21 | PCOTNOTE ---
Attempted to see patient twice this date. First attempt, patient had just got back to bed from physical therapy and sitting up in chair. Second attempt, patient was with nursing getting dressing change.
== END 2022-04-29 15:20 ==
LOC: ANHED 23:09 → ANH3MEDSUR 04-26 02:46
PROVIDERS: Physician Assistant; Admitting Provider Internal Medicine; Emergency Provider Emergency Medicine; PCP Family Medicine; Visit Provider Family Medicine
DX: T84.020A Dislocation of internal right hip prosthesis, initial encounter (principal); W19.XXXA Unspecified fall, initial encounter; R29.6 Repeated falls; S52.572A Other intraarticular fracture of lower end of left radius, initial encounter for closed fracture; S52.612A Displaced fracture of left ulna styloid process, initial encounter for closed fracture; D72.829 Elevated white blood cell count, unspecified; G47.33 Obstructive sleep apnea (adult) (pediatric); Z99.89 Dependence on other enabling machines and devices; Z91.51 Personal history of suicidal behavior; F10.129 Alcohol abuse with intoxication, unspecified; Y90.6 Blood alcohol level of 120-199 mg/100 ml; K21.9 Gastro-esophageal reflux disease without esophagitis; I82.411 Acute embolism and thrombosis of right femoral vein; R62.7 Adult failure to thrive; M16.12 Unilateral primary osteoarthritis, left hip; I67.2 Cerebral atherosclerosis; I67.82 Cerebral ischemia; M25.432 Effusion, left wrist; F03.90 Unspecified dementia, unspecified severity, without behavioral disturbance, psychotic disturbance, mood disturbance, and anxiety; R53.1 Weakness; J98.11 Atelectasis; J43.9 Emphysema, unspecified; K44.9 Diaphragmatic hernia without obstruction or gangrene; F41.9 Anxiety disorder, unspecified; F32.A Depression, unspecified; E78.5 Hyperlipidemia, unspecified; Z20.822 Contact with and (suspected) exposure to COVID-19; F17.210 Nicotine dependence, cigarettes, uncomplicated; Z96.651 Presence of right artificial knee joint; Z86.718 Personal history of other venous thrombosis and embolism; Z79.01 Long term (current) use of anticoagulants; Z79.899 Other long term (current) drug therapy; Z82.3 Family history of stroke; Z82.49 Family history of ischemic heart disease and other diseases of the circulatory system; Z84.89 Family history of other specified conditions
CPT/HCPCS: 25624; 27266; 36415; 70450; 71045; 73100; 73501; 73502; 80048; 80053; 80307; 81001; 82948; 83690; 83735; 84484; 85025; 85027; 85610; 85730; 87426; 93005; 96365; 96375; 96376; 97110; 97162; 97167; 97530; 99285; A9270; C9113; C9803; G0378; J0696; J2270; J2704; J7030; U0003; U0005

== ENCOUNTER 2022-08-21 12:37 | Emergency (ER) | payer MEDICARE, MEDICAID, SELFPAY ==
[2022-08-21 12:38] VITALS: BP 143/61; PULSE 104; RESP 20; TEMP 36.4; O2SAT 97
[2022-08-21 17:39] LABS: Basophils Absolute Auto 0.1 K/mm3 (0.0-0.1); Basophils Percent Auto 0.6 % (0.2-1.2); Hematocrit 45.8 % (42.0-52.0); Hemoglobin 15.3 g/dL (14.0-18.0); Immature Granulocyte Absolute 0.04 K/mm3 (0.00-0.031); Immature Granulocyte Percent A 0.4 % (0-0.5); Lymphocytes Absolute Auto 0.68 K/mm3 (0.9-3.2); Lymphocytes Percent Auto 7.5 % (18.3-44.2); Mean Corpuscular HGB Conc 33.4 g/dl (32-36); Mean Corpuscular Hemoglobin 31.5 pg (26-34); Mean Corpuscular Volume 94.2 fl (80-100); Mean Platelet Volume 9.8 fl (7.4-10.4); Monocytes Percent Auto 10.9 % (2.6-8.5); Neutrophils Absolute Auto 7.3 K/mm3 (1.3-6.7); Neutrophils Percent Auto 80.6 % (45.5-73.1); Platelet Count Result 274 k/mm3 (150-375); Red Blood Count 4.86 M/mm3 (4.6-6.20); Red Cell Distribution Width 16.4 % (11.5-14.5); White Blood Count 9.1 K/mm3 (4.5-10.0)
--- NOTE | 2022-08-21 17:40 | ED.PSYCH ---
HPI - Psych General Chief Complaint: Psychiatric Symptoms Stated Complaint: im not doing good Time Seen by Provider: 08/21/22 16:53 History of Present Illness HPI Narrative: Patient is a 66-year-old male with a history of bipolar disorder, anxiety, dementia presenting for psych evaluation. Patient states that he has not been doing well over the last several months. Patient states that he has been increasingly anxious and hopeless. States that he feels overwhelmed with debt and the marital troubles. States that he attempted suicide in March. He denies suicidal ideation today. He denies homicidal ideation. States that he just feels hopeless with life. He has not followed up with his psychiatrist for several months. He denies physical complaints or symptoms. Related Data Home Medications Medication Instructions Recorded Confirmed apixaban 5 mg tablet (Eliquis) 5 mg PO BID 03/20/22 04/26/22 olanzapine 10 mg tablet 5 mg PO HS 03/20/22 04/26/22 mirtazapine 45 mg tablet 45 mg PO DAILY 04/26/22 04/26/22 venlafaxine 150 mg 150 mg PO DAILY 04/26/22 04/26/22 capsule,extended release 24 hr Allergies Allergy/AdvReac Type Severity Reaction Status Date / Time erythromycin base Allergy Intermediate HIVES Verified 08/21/22 18:02 paroxetine Allergy Intermediate Hives Verified 08/21/22 18:02 sertraline Allergy Intermediate Hives Verified 08/21/22 18:02 trazodone Allergy Intermediate HIVES Verified 08/21/22 18:02 Review of Systems Review of Systems: All systems reviewed & are unremarkable except as noted in HPI and below PMFSH Past Medical History Medical History Anxiety Bipolar disorder Colon polyps Depression GERD (gastroesophageal reflux disease) History of revision of total replacement of right hip joint Hx of deep venous thrombosis Hyperlipidemia AMADA (obstructive sleep apnea) Surgical History Surgical History H/O rectal polypectomy Status post total hip replacement, right Family History Family History Father Family history of malignant neoplasm of esophagus Patient's father is Mother Patient's mother is in good health Sibling Patient's brother is in good health Daughter Sleep apnea Other Cerebrovascular accident Family history of cardiovascular disease Family history of mental disorder Social History Social History Social History: Patient is and lives with his . He smokes a pack a cigarettes a day. He is retired from a [employer] company. He also previously heavily drink alcohol. He does designate his as his POA. Code status full code Smoking packs per day: 1 Smoking cigarettes per day: 20.0 Smoking status: Former smoker Second hand tobacco smoke exposure: No Smoking end date: 04/19/22 Alcohol intake: current Drinks per week: 2 Alcohol use details: Previously drank 2-3 beers per day but quit 13-14 years ago. Substance use: never Living arrangements: with family Gender identity (if verbalized by the patient): Male Spiritual care concerns: No Agree to blood products: No Exam Narrative: GENERAL: Disheveled, anxious appearing, cooperative and pleasant HEAD: Normocephalic, atraumatic. EYES: PERRLA and EOMI. ENT: Nares clear, no rhinorrhea or epistaxis. Mucous membranes moist. NECK: Supple. CHEST: Clear to auscultation. No respiratory distress. HEART: Regular rate and rhythm. No murmur heard. Normal peripheral pulses. ABDOMEN: Soft, nontender, nondistended, normal active bowel sounds. EXTREMITIES: Normal range of motion. No edema. SKIN: Warm, dry, no rash. NEURO: No focal deficits. Alert and oriented x3. PSYCH: Flat affect, appears anxious, denies SI or HI but states he does feel increasingly hopeless Course Vi
[2022-08-21 17:50] LABS: Acetaminophen < 10 ug/mL (10-30); Ethanol < 10 mg/dL (<10); Salicylate < 1.0 mg/dL (2-20)
[2022-08-21 17:53] LABS: Alanine Aminotransferase 19 U/L (6-50); Albumin Level 3.7 g/dL (3.5-5.1); Alkaline Phosphatase 155 U/L (38-126); Anion Gap 10 mmol/L (8-16); Aspartate Amino Transferase 22 U/L (17-59); Blood Urea Nitrogen 18 mg/dL (9-20); Calcium 9.1 mg/dL (8.4-10.2); Carbon Dioxide 18 mmol/L (22-30); Chloride 104 mmol/L (98-107); Estimated Glomerular Filt Rate 55; Glucose 136 mg/dL (65-110); Potassium 4.4 mmol/L (3.4-5.0); Sodium 132 mmol/L (137-145)
[2022-08-21] MEDS: hydrOXYzine HCL 25 MG TABLET 50 MG PO (18:02)
[2022-08-21 18:16] LABS: Influenza A QL RT-PCR Negative (Negative); Influenza B QL RT-PCR Negative (Negative); SARS-CoV-2 RNA PCR Negative
[2022-08-21 18:25] LABS: Appearance Urine Clear (Clear); Bilirubin Urine 2+ (Negative); Blood Urine 1+ (Negative); Color Urine Yellow (Yellow); Glucose Urine UA Negative (Negative); Ketones Urine Negative (Negative); Leukocyte Esterase Ur Negative LEU/UL (Negative); Nitrate Urine Positive (Negative); Protein Urine 2+ mg/dL (Negative); Specific Grav Ur >= 1.030 (1.001-1.035); pH Urine 5.5 (5.0-9.0)
[2022-08-21 18:32] LABS: Bacteria Urine Trace /hpf; Mucus Urine Heavy /lpf; Squamous Epithelial Cell Urine Few /hpf (Few); WBC Urine 21-30 /hpf
[2022-08-21 18:38] LABS: Add Urine Microscopic? YES
[2022-08-21 19:01] LABS: Influenza A QL RT-PCR Negative (Negative); Influenza B QL RT-PCR Negative (Negative); RSV RNA, RT-PCR Negative (Negative); SARS-CoV-2 RNA PCR Negative
[2022-08-21 19:03] LABS: Barbiturate Screen Urine Negative (Negative); Benzodiazepines Screen Urine Negative (Negative)
[2022-08-21 19:08] LABS: Amphetamine Screen Urine Negative (Negative); Cannabinoid Screen Urine Negative (Negative); Cocaine Screen Urine Negative (Negative); Methadone Screen Urine Negative (Negative); Opiate Screen Urine Negative (Negative); Phencyclidine Screen Urine Negative (Negative)
[2022-08-21] MEDS: CEPHALEXIN 500 MG CAPSULE PO (21:14)
== END 2022-08-21 22:05 | disposition home or self-care (01) ==
PROVIDERS: Emergency Provider Emergency Medicine; PCP Family Medicine
DX: F41.9 Anxiety disorder, unspecified (principal); N39.0 Urinary tract infection, site not specified; K21.9 Gastro-esophageal reflux disease without esophagitis; E78.5 Hyperlipidemia, unspecified; Z87.891 Personal history of nicotine dependence; Z20.822 Contact with and (suspected) exposure to COVID-19
CPT/HCPCS: 36415; 80053; 80307; 81001; 85025; 87077; 87086; 87088; 87636; 87637; 99284; A9270

== ENCOUNTER 2022-11-05 08:22 | Emergency (ER) | payer MEDICARE, MEDICAID, SELFPAY ==
--- NOTE | ~2022-11-05 | US_ITS ---
EXAMINATION: US venous doppler [facility] DATE: 11/05/2022 10:25 INDICATION: Lower limb swelling TECHNIQUE: Webber scale images without and with compression and Doppler images of the bilateral lower e xtremity veins were obtained. COMPARISON: 08/15/2019 FINDINGS: There is partial thrombosis of the right femoral vein. The right common femoral vein, profunda femora l vein, popliteal vein, peroneal trunk, posterior tibial veins, and greater saphenous vein are patent . The left common femoral vein, profunda femoral vein, femoral vein, popliteal vein, peroneal trunk, po sterior tibial veins, and greater saphenous vein are patent. IMPRESSION: 1. Partial thrombosis of the right femoral vein. Otherwise, patent bilateral lower extremity veins. These findings were discussed with Dr. Duarte in the Emergency Department at 1020 hours on 11/05/2022 . Reviewed, dictated and finalized at location B. IMPRESSION: 1. Partial thrombosis of the right femoral vein. Otherwise, patent bilateral lo wer extremity veins. These findings were discussed with Dr. Duarte in the Emergency Department at 1020 hours on 11/05/2022.
--- NOTE | ~2022-11-05 | CT_ITS ---
EXAMINATION: CT brain wo con DATE: 11/05/2022 09:01 INDICATION: Loss of movement in right hand. TECHNIQUE: Computed tomography (CT) of the head was performed without intravenous contrast. The mA wa s adjusted according to patient size. Iterative reconstruction technique was employed. The dose-lengt h product was 908.00 mGy-cm. COMPARISON: Head CT 04/25/2022 FINDINGS: There is no intracranial hemorrhage, acute infarction, or abnormal intracranial mass lesion . The ventricles are normal in size. The orbits are normal. There are mucous retention cysts in the m axillary sinuses. There is mild mucosal thickening in the other paranasal sinuses. The mastoid air ce lls are normal. IMPRESSION: 1. Normal brain. Reviewed, dictated and finalized at location A. IMPRESSION: 1. Normal brain.
--- NOTE | ~2022-11-05 | XR_ITS ---
EXAMINATION: XR chest 2V DATE: 11/05/2022 09:55 INDICATION: Tachypnea. TECHNIQUE: Frontal and lateral views of the chest were obtained on 3 radiographs. COMPARISON: Chest single view 04/25/2022, chest CT 11/3716 FINDINGS: The lungs are hyperexpanded with lucencies, consistent with emphysema. There is mild atelec tasis in lingula. No pleural effusion or pneumothorax. The heart size is normal. There is a large hia artemio hernia. There is mild chronic anterior wedging of multiple midthoracic vertebral bodies. IMPRESSION: 1. Severe emphysema. 2. Mild atelectasis in the lingula. 3. Large hiatal hernia. Reviewed, dictated and finalized at location A.
[2022-11-05 08:24] VITALS: BP 140/107; PULSE 102; RESP 22; TEMP 36.5; O2SAT 100
--- NOTE | 2022-11-05 08:31 | ECG_ITS ---
Measurements Intervals [place] Rate: 98 P: 12 [place]: 170 QRS: 15 QRSD: 72 T: 55 QT: 326 QTc: 417 Interpretive Statements SINUS RHYTHM BASELINE ARTIFACT NONSPECIFIC T-WAVE ABNORMALITY BORDERLINE ECG COMPARED TO ECG 04/25/2022 21:57:23 NO SIGNIFICANT CHANGES Electronically Signed On 11-06-2022 14:48:34 CDT by Vernon Mccracken M.D.
--- NOTE | 2022-11-05 09:07 | ED.NEUROSD ---
HPI - Neuro Symptoms/Deficit General Chief Complaint: Suspected CVA Stated Complaint: edema Time Seen by Provider: 11/05/22 08:58 Source: patient and old records reviewed Mode of arrival: EMS Limitations: no limitations History of Present Illness HPI Narrative: Patient is a 67 y/o male who presents to the ED via EMS with multiple complaints. Patient reports having increased anxiety, limpness of his R hand for the past 1 month-5 weeks, and lower extremity swelling. Patient appears very anxious and repeatedly asks if he is going to . Patient states he became freaked out about his hand not moving as much as usual this morning which prompted him to call EMS. He is concerned he is having a stroke. Patient otherwise denies any weakness, confusion, headache, numbness, vision changes, slurred speech, facial droop, dizziness. He also reports having increased lower extremity swelling for the last few weeks. He is concerned he may have a blood clot. He does have history of DVT in his RLE and takes Eliquis 5 mg twice daily. He has been taking this as directed. He did not take it this morning however due to coming to the ED. Denies any chest pain or difficulty breathing. Denies pain in his legs. Denies wounds. Patient does not currently take anything for his anxiety. He has not seen a psychiatrist for several months. He has been seen in the ED for anxiety previously. Denies any current SI or HI. Patient does admit to drinking a small amount of wine this morning. He states over the last couple weeks, he has been drinking daily. Denies hx of WD sx's. Related Data Home Medications Medication Instructions Recorded Confirmed apixaban 5 mg tablet (Eliquis) 5 mg PO BID 03/20/22 04/26/22 olanzapine 10 mg tablet 5 mg PO HS 03/20/22 04/26/22 mirtazapine 45 mg tablet 45 mg PO DAILY 04/26/22 04/26/22 venlafaxine 150 mg 150 mg PO DAILY 04/26/22 04/26/22 capsule,extended release 24 hr Allergies Allergy/AdvReac Type Severity Reaction Status Date / Time erythromycin base Allergy Intermediate HIVES Verified 08/21/22 18:02 paroxetine Allergy Intermediate Hives Verified 08/21/22 18:02 sertraline Allergy Intermediate Hives Verified 08/21/22 18:02 trazodone Allergy Intermediate HIVES Verified 08/21/22 18:02 Review of Systems Review of Systems: CONSTITUTIONAL: Denies fever, chills, or sweats. EYES: Denies visual changes. CARDIOVASCULAR: See HPI. RESPIRATORY: Denies cough or dyspnea. GASTROINTESTINAL: Denies abdominal pain, nausea, vomiting, or diarrhea. GENITOURINARY: Denies dysuria or hematuria. MUSCULOSKELETAL: See HPI. NEUROLOGIC: See HPI. PSYCHIATRIC: See HPI. All systems reviewed & are unremarkable except as noted in HPI and below PMFSH Past Medical History Medical History Anxiety Bipolar disorder Colon polyps Depression GERD (gastroesophageal reflux disease) History of revision of total replacement of right hip joint Hx of deep venous thrombosis Hyperlipidemia AMADA (obstructive sleep apnea) Surgical History Surgical History H/O rectal polypectomy Status post total hip replacement, right Family History Family History Father Family history of malignant neoplasm of esophagus Patient's father is Mother Patient's mother is in good health Sibling Patient's brother is in good health Daughter Sleep apnea Other Cerebrovascular accident Family history of cardiovascular disease Family history of mental disorder Social History Social History Social History: Patient is and lives with his . He smokes a pack a cigarettes a day. He is retired from a [employer] company. He also previously heavily drink alcohol. He does designate his as his POA. Code status full code
[2022-11-05 09:32] LABS: Basophils Percent Auto 0.5 % (0.2-1.2); Eosinophils Percent Auto 0.3 % (0-4.4); Immature Granulocyte Absolute 0.02 K/mm3 (0.00-0.031); Immature Granulocyte Percent A 0.3 % (0-0.5); Lymphocytes Absolute Auto 0.61 K/mm3 (0.9-3.2); Lymphocytes Percent Auto 7.9 % (18.3-44.2); Mean Corpuscular HGB Conc 33.3 g/dl (32-36); Mean Corpuscular Hemoglobin 32.5 pg (26-34); Mean Corpuscular Volume 97.4 fl (80-100); Mean Platelet Volume 10.2 fl (7.4-10.4); Monocytes Absolute Auto 0.6 K/mm3 (0.1-0.6); Monocytes Percent Auto 7.9 % (2.6-8.5); Neutrophils Absolute Auto 6.4 K/mm3 (1.3-6.7); Neutrophils Percent Auto 83.1 % (45.5-73.1); Platelet Count Result 285 k/mm3 (150-375); Red Blood Count 4.93 M/mm3 (4.6-6.20); Red Cell Distribution Width 15.2 % (11.5-14.5); White Blood Count 7.7 K/mm3 (4.5-10.0)
[2022-11-05 09:38] LABS: Alanine Aminotransferase 18 U/L (6-50); Albumin Level 4.2 g/dL (3.5-5.1); Alkaline Phosphatase 134 U/L (38-126); Anion Gap 11 mmol/L (8-16); Aspartate Amino Transferase 21 U/L (17-59); Bilirubin,Total 1.3 mg/dL (0.2-1.3); Blood Urea Nitrogen 14 mg/dL (9-20); Calcium 9.8 mg/dL (8.4-10.2); Carbon Dioxide 23 mmol/L (22-30); Chloride 104 mmol/L (98-107); Estimated Glomerular Filt Rate 60; Glucose 102 mg/dL (65-110); Potassium 4.8 mmol/L (3.4-5.0); Sodium 138 mmol/L (137-145)
[2022-11-05 09:41] LABS: Ethanol < 10 mg/dL (<10); INR 1.2; Prothrombin Time 14.9 Seconds (11.1-14.7)
[2022-11-05 09:42] LABS: Partial Thromboplastin Time 28.3 SECONDS (22.3-36.8)
[2022-11-05 10:09] LABS: NT Pro B Type Natriuretic Pept 171 pg/mL (19.9-100)
[2022-11-05] MEDS: APIXABAN 5 MG TABLET PO (10:49)
[2022-11-05 11:12] LABS: Acetaminophen < 10 ug/mL (10-30); Salicylate < 1.0 mg/dL (2-20)
[2022-11-05 11:14] LABS: Appearance Urine Clear (Clear); Bacteria Urine None Seen /hpf; Bilirubin Urine 1+ (Negative); Blood Urine Negative (Negative); Color Urine Dark Yellow (Yellow); Glucose Urine UA Negative (Negative); Hyaline Casts Urine Present /lpf; Ketones Urine Trace mg/dL (Negative); Leukocyte Esterase Ur 1+ LEU/UL (Negative); Mucus Urine Present /lpf; Nitrate Urine Negative (Negative); Non Pathogenic Casts >20; Protein Urine 1+ mg/dL (Negative); RBC Urine 0-2 /hpf (0-2); Specific Grav Ur 1.017 (1.001-1.035); Squamous Epithelial Cell Urine None seen /hpf (Few); WBC Urine 21-50 /hpf
[2022-11-05 11:19] LABS: Amphetamine Screen Urine Negative (Negative); Barbiturate Screen Urine Negative (Negative); Benzodiazepines Screen Urine Negative (Negative); Cannabinoid Screen Urine Negative (Negative); Cocaine Screen Urine Negative (Negative); Methadone Screen Urine Negative (Negative); Opiate Screen Urine Negative (Negative); Phencyclidine Screen Urine Negative (Negative)
[2022-11-05 11:30] LABS: Add Urine Microscopic? YES
[2022-11-05] MEDS: CEPHALEXIN 500 MG CAPSULE PO (12:07)
[2022-11-05 13:00] LABS: Influenza A QL RT-PCR Negative (Negative); Influenza B QL RT-PCR Negative (Negative); SARS-CoV-2 RNA PCR Negative
[2022-11-05 14:29] VITALS: BP 125/88; PULSE 70; RESP 16
== END 2022-11-05 14:32 | disposition home or self-care (01) ==
PROVIDERS: Emergency Medicine; Emergency Provider Physician Assistant; PCP Family Medicine
DX: F41.9 Anxiety disorder, unspecified (principal); I82.411 Acute embolism and thrombosis of right femoral vein; N30.00 Acute cystitis without hematuria; Z20.822 Contact with and (suspected) exposure to COVID-19; R94.31 Abnormal electrocardiogram [ECG] [EKG]; Z86.718 Personal history of other venous thrombosis and embolism; Z79.01 Long term (current) use of anticoagulants
CPT/HCPCS: 36415; 70450; 71046; 80053; 80307; 81001; 83880; 84443; 85025; 85610; 85730; 87086; 87636; 93005; 93970; 99284; A9270

== ENCOUNTER 2023-01-23 11:21 | Emergency (ER) | payer MEDICARE, MEDICAID, SELFPAY ==
--- NOTE | ~2023-01-23 | XR_ITS ---
XR chest 2V DATE: 01/23/2023 12:25 INDICATION: Anxiety, weakness TECHNIQUE: AP and lateral views COMPARISON: November 05, 2022 2 view chest FINDINGS: Bilateral hyperinflation. Minimal discoid atelectasis or scarring in the right mid to upper lung. No pulmonary infiltrate or consolidation, pleural effusion or pulmonary vascular congestion or pneumothorax is detected. Heart size is within normal limits. Is large hiatal hernia. There is aortic tortuosity. Osteopenia. IMPRESSION: Bilateral hyperinflation consistent with COPD No active pulmonary disease Large hiatal hernia Osteopenia Reviewed, dictated and finalized at location A.
--- NOTE | 2023-01-23 11:51 | ECG_ITS ---
Measurements Intervals [place] Rate: 88 P: 52 OR: 158 QRS: 44 QRSD: 77 T: 66 QT: 344 QTc: 416 Interpretive Statements SINUS RHYTHM NORMAL ECG COMPARED TO ECG 11/05/2022 08:38:40 NO SIGNIFICANT CHANGES Electronically Signed On 01-24-2023 10:34:04 CDT by Fernando Rosario M.D.
[2023-01-23 11:52] VITALS: BP 145/95; PULSE 88; RESP 18; TEMP 36.1; O2SAT 97
[2023-01-23 12:13] LABS: Basophils Absolute Auto 0.1 K/mm3 (0.0-0.1); Basophils Percent Auto 0.5 % (0.2-1.2); Eosinophils Percent Auto 0.1 % (0-4.4); Hematocrit 48.9 % (42.0-52.0); Hemoglobin 16.6 g/dL (14.0-18.0); Immature Granulocyte Absolute 0.03 K/mm3 (0.00-0.031); Immature Granulocyte Percent A 0.3 % (0-0.5); Lymphocytes Absolute Auto 0.67 K/mm3 (0.9-3.2); Lymphocytes Percent Auto 7.3 % (18.3-44.2); Mean Corpuscular HGB Conc 33.9 g/dl (32-36); Mean Corpuscular Hemoglobin 32.4 pg (26-34); Mean Corpuscular Volume 95.3 fl (80-100); Mean Platelet Volume 10.3 fl (7.4-10.4); Monocytes Absolute Auto 0.8 K/mm3 (0.1-0.6); Monocytes Percent Auto 8.4 % (2.6-8.5); Neutrophils Absolute Auto 7.7 K/mm3 (1.3-6.7); Neutrophils Percent Auto 83.4 % (45.5-73.1); Platelet Count Result 228 k/mm3 (150-375); Red Blood Count 5.13 M/mm3 (4.6-6.20); Red Cell Distribution Width 14.2 % (11.5-14.5); White Blood Count 9.2 K/mm3 (4.5-10.0)
[2023-01-23 12:22] LABS: Alanine Aminotransferase 18 U/L (6-50); Alkaline Phosphatase 117 U/L (38-126); Anion Gap 8 mmol/L (8-16); Aspartate Amino Transferase 22 U/L (17-59); Bilirubin,Total 1.3 mg/dL (0.2-1.3); Blood Urea Nitrogen 16 mg/dL (9-20); Calcium 9.4 mg/dL (8.4-10.2); Carbon Dioxide 24 mmol/L (22-30); Chloride 103 mmol/L (98-107); Estimated CRCL calculation 64 ml/min; Estimated Glomerular Filt Rate > 60; Glucose 104 mg/dL (65-110); Lipase 115 U/L (23-300); Potassium 4.6 mmol/L (3.4-5.0); Sodium 135 mmol/L (137-145)
[2023-01-23 12:23] LABS: Ethanol < 10 mg/dL (<10)
[2023-01-23 12:24] LABS: INR 1.2; Partial Thromboplastin Time 30.6 SECONDS (22.3-36.8); Prothrombin Time 15.5 Seconds (11.1-14.7)
[2023-01-23 12:34] LABS: Troponin I < 0.012 ng/mL (0.000-0.034)
--- NOTE | 2023-01-23 12:47 | ED.ANXIETY ---
HPI - Anxiety General Chief Complaint: Anxiety Stated Complaint: anxiety, uti symptoms Time Seen by Provider: 01/23/23 12:03 Source: patient, RN notes reviewed and old records reviewed Mode of arrival: ambulatory Limitations: no limitations History of Present Illness HPI narrative: THis is a 67 year old male with history of anxiety and depression who presents for evaluation of anxiety. Patient states he has a bad life. HE states he has said some horrible things in the past and he is having difficulty. He states his house is a mess and he has significant medical problems. He states that his is ill. He states he needs help but he does not having any help. He states has been drinking wine today to cope. He is suppose to be on medication for his depression but he is not taking it to drink alcohol. He denies chest pain , shortness of breath, nasuea, vomiting. HE denies SI or HI. Related Data Home Medications Medication Instructions Recorded Confirmed apixaban 5 mg tablet (Eliquis) 5 mg PO BID 03/20/22 04/26/22 olanzapine 10 mg tablet 5 mg PO HS 03/20/22 04/26/22 mirtazapine 45 mg tablet 45 mg PO DAILY 04/26/22 04/26/22 venlafaxine 150 mg 150 mg PO DAILY 04/26/22 04/26/22 capsule,extended release 24 hr Allergies Allergy/AdvReac Type Severity Reaction Status Date / Time erythromycin base Allergy Intermediate HIVES Verified 08/21/22 18:02 paroxetine Allergy Intermediate Hives Verified 08/21/22 18:02 sertraline Allergy Intermediate Hives Verified 08/21/22 18:02 trazodone Allergy Intermediate HIVES Verified 08/21/22 18:02 Review of Systems Constitutional: Constitutional: Denies weakness Cardiovascular: Cardiovascular: Denies syncope, Denies rapid heart rate, Denies irregular heart rhythm, Denies leg edema and Denies dyspnea Respiratory: Respiratory: Denies chest congestion, Denies hemoptysis, Denies excessive phlegm production and Denies dyspnea Gastrointestinal: Gastrointestinal: Denies abdominal pain, Denies hematochezia, Denies diarrhea and Denies vomiting Genitourinary: Genitourinary: Denies hematuria, Denies dysuria, Denies penile discharge and Denies testicular pain Musculoskeletal: Musculoskeletal: Denies joint swelling, Denies loss of height and Denies muscle weakness Neurologic: Denies syncope, Denies focal weakness and Denies weakness Psychiatric: Psychiatric: Reports anxiety PMFSH Past Medical History Medical History Anxiety Bipolar disorder Colon polyps Depression GERD (gastroesophageal reflux disease) History of revision of total replacement of right hip joint Hx of deep venous thrombosis Hyperlipidemia AMADA (obstructive sleep apnea) Surgical History Surgical History H/O rectal polypectomy Status post total hip replacement, right Family History Family History Father Family history of malignant neoplasm of esophagus Patient's father is Mother Patient's mother is in good health Sibling Patient's brother is in good health Daughter Sleep apnea Other Cerebrovascular accident Family history of cardiovascular disease Family history of mental disorder Social History Social History Social History: Patient is and lives with his . He smokes a pack a cigarettes a day. He is retired from a [employer]. He also previously heavily drink alcohol. He does designate his as his POA. Code status full code Smoking packs per day: 1 Smoking cigarettes per day: 20.0 Smoking status: Former smoker Second hand tobacco smoke exposure: No Smoking end date: 04/19/22 Alcohol intake: current Drinks per week: 2 Alcohol use details: Previously drank 2-3 beers per day but quit 13-14 years ago. Substance use: never Living arrangements:
[2023-01-23 13:23] LABS: Appearance Urine Clear (Clear); Bacteria Urine None Seen /hpf; Bilirubin Urine 1+ (Negative); Blood Urine Negative (Negative); Color Urine Dark Yellow (Yellow); Glucose Urine UA Negative (Negative); Hyaline Casts Urine Present /lpf; Ketones Urine Trace mg/dL (Negative); Leukocyte Esterase Ur Trace LEU/UL (Negative); Need Manual Microscopic Reviewed; Nitrate Urine Negative (Negative); Protein Urine Trace mg/dL (Negative); Specific Grav Ur 1.019 (1.001-1.035); Squamous Epithelial Cell Urine None seen /hpf (Few); WBC Urine 0-5 /hpf; pH Urine 6.5 (5.0-9.0)
[2023-01-23 13:25] LABS: Barbiturate Screen Urine Negative (Negative); Benzodiazepines Screen Urine Negative (Negative)
[2023-01-23 13:26] LABS: Amphetamine Screen Urine Negative (Negative); Cannabinoid Screen Urine Negative (Negative); Cocaine Screen Urine Negative (Negative); Opiate Screen Urine Negative (Negative); Phencyclidine Screen Urine Negative (Negative)
[2023-01-23] MEDS: LORazepam INJ (*CRX) 2 MG/ML VIAL 0.5 MG IM (13:27)
[2023-01-23 13:30] LABS: Add Urine Microscopic? YES; Methadone Screen Urine Negative (Negative)
[2023-01-23 14:39] VITALS: BP 127/79; PULSE 80; RESP 20; O2SAT 98
[2023-01-23 15:06] VITALS: BP 140/100; PULSE 87; RESP 18; O2SAT 98
== END 2023-01-23 15:08 | disposition home or self-care (01) ==
PROVIDERS: Preventive Medicine Aerospace Medicine; Emergency Provider General Practice; PCP Family Medicine
DX: F41.9 Anxiety disorder, unspecified (principal); E78.5 Hyperlipidemia, unspecified; K21.9 Gastro-esophageal reflux disease without esophagitis; G47.33 Obstructive sleep apnea (adult) (pediatric); F31.9 Bipolar disorder, unspecified; Z96.641 Presence of right artificial hip joint; Z86.718 Personal history of other venous thrombosis and embolism; Z87.19 Personal history of other diseases of the digestive system; Z87.891 Personal history of nicotine dependence; Z79.899 Other long term (current) drug therapy; Z79.01 Long term (current) use of anticoagulants; M85.88 Other specified disorders of bone density and structure, other site; K44.9 Diaphragmatic hernia without obstruction or gangrene; R91.8 Other nonspecific abnormal finding of lung field
CPT/HCPCS: 36415; 71046; 80053; 80307; 81001; 83690; 84484; 85025; 85610; 85730; 93005; 96372; 99284; J2060